=== PATIENT | female | born 1955 | race Caucasian/White ===

== ENCOUNTER 2019-01-05 10:09 | Inpatient (IN) | payer OTHER ==
[2019-01-05 11:37] LABS: #Lymphocytes 2.4 thou/uL (1.20-3.40); #Monocytes 0.8 thou/uL (0.11-0.59); #Neutrophils 10.7 thou/uL (1.40-6.50); %Basophils 0.4 % (0.0-1.0); %Eosinophils 0.1 % (0.0-10.0); %Lymphocytes 17.4 % (21.0-51.0); %Monocytes 5.6 % (0.0-10.0); %Neutrophils 76.6 % (42.0-75.0); Hemoglobin 14.2 g/dL (12.0-16.0); Mean Corpuscular HGB CONC 33.2 g/dL (32.0-36.0); Mean Corpuscular Hemoglobin 31.1 pg (27.0-31.0); Mean Corpuscular Volume 93.7 fL (78.0-98.0); Mean Platelet Volume 8.2 fL (7.4-10.4); Platelet Count 298 thou/uL (130-400); RBC Distribution Width 11.4 % (11.5-14.5); Red Blood Cell (RBC) Count 4.56 mill/uL (4.20-5.40)
[2019-01-05 12:02] LABS: ALT (SGPT) Less than 7 U/L (8-55); AST (SGOT) 8 U/L (5-34); Alkaline Phosphatase 61 U/L (40-150); Anion Gap 15 mmol/L (10-20); BUN (Urea Nitrogen) 24 mg/dL (9.8-20.1); Bilirubin, Total 0.5 mg/dL (0.2-1.2); Calc. Creatinine Clearance 0 mL/min (70-130); Calcium 9.6 mg/dL (7.8-10.44); Carbon Dioxide 22 mmol/L (23-31); Chloride 99 mmol/L (98-107); Estimated GFR-MDRD 86; Globulin 2.1 g/dL (2.4-3.5); Glucose 123 mg/dL (80-115); Potassium 4.1 mmol/L (3.5-5.1); Protein, Total 6.1 g/dL (6.0-8.3); Sodium 132 mmol/L (136-145)
--- NOTE | 2019-01-05 13:25 | CT ---
CT BRAIN WITHOUT CONTRAST: HISTORY: Left-sided weakness. FINDINGS: No evidence of acute infarct, hemorrhage, midline shift, or abnormal extraaxial fluid collections is seen. The ventricular size is appropriate and the basilar cisterns are patent. The bony calvarium i s intact. The visualized paranasal sinuses and mastoid air cells are well aerated. IMPRESSION: No CT evidence of acute intracranial process. POS: TPC
[2019-01-05 13:29] LABS: PTT 25.8 SEC (22.9-36.1); Prothrombin Time 13.6 SEC (12.0-14.7)
[2019-01-05] MEDS ORDERED: Ondansetron ODT 4 MG TAB SL PRN (14:52)
[2019-01-05] MEDS ORDERED: Acetaminophen 325 MG TAB PO PRN (14:52)
[2019-01-05] MEDS ORDERED: Ondansetron PF 4 MG/2 ML Vial IVP PRN (14:52)
--- NOTE | 2019-01-05 14:52 | PDOC.FPRHP ---
- History of Present Illness Chief Complaint: Progessive L sided Weaknes History of Present Illness: Pt is a 63 yo female with PMH signfiicant for DMII cervical spine stenosis who presented with worsening L sided weakness, arm and leg. Weakness began 2 weeks ago and progressively worsened to today prompting the visit to ED. Today she felt unable to walk with help. She has no new symptoms today. Before the onset of symptoms two weeks ago she denied any symptoms that are present now. She did state she had a cervical disc herniation resulting pain. She has accompanied tingling sensation, pain in her fingers and toes but no other sensation changes. She was seen by her PCP when symptoms began and had an MRI performed which revealed cervical compression, cervical disc herniation, and C1-C5 demyelination. Pt scheduled an appt for today, 01/05, with [facility] to evaluate MRI, symptoms. Due to her admission she cancelled the appt with neurosurgery. She went to an out of town ED, [facility], where she had a CTA revealing no stenosis of carotid arteries and CT head revealed chronic white matter changes, incidental 2 mm vertebral aneurysm. ED Course: In the ED a non-contrast CT was WNL. Labs were WNL other than a mildly elevated WBC, 14. ED noted Left sided weakness in face, arm, and leg. - Allergies/Adverse Reactions Allergies Allergy/AdvReac Type Severity Reaction Status Date / Time amoxicillin [From Augmentin] Allergy Verified 01/05/19 14:48 clavulanic acid Allergy Verified 01/05/19 14:48 [From Augmentin] - Home Medications Medication Instructions Recorded Confirmed Type Cyclobenzaprine [Flexeril] 01/05/19 History Losartan [Cozaar] 25 mg PO DAILY 01/05/19 01/05/19 History Meclizine HCl [Motion Sickness 25 mg PO 01/05/19 History Relief] Metaxalone [Skelaxin] 800 mg PO TID 01/05/19 01/05/19 History metFORMIN XR [Glucophage XR] 500 mg PO BID 01/05/19 01/05/19 History - History PMHx: DM, cervical stenosis, denied prior cardiac history or CVA/TIA PSHx: none FHx: none Social: stopped smoking 3 weeks ago after 20 years, smoked less than a pack per week at that time; denied alcohol, drug use - Review of Systems General: denies: fever/chills, weight/appetite/sleep changes Eyes: reports: eye pain ENT: denies: nasal congestion, rhinorrhea Respiratory: denies: cough, shortness of breath Cardiovascular: denies: chest pain, palpitation Gastrointestinal: denies: nausea, vomiting Skin: denies: rashes, lesions Neurological: reports: weakness, other (tingling, pain) Psychological: denies: anxiety, depression - Vital signs BP: [151/72] HR: [72] RR: [12] Tmax: []97.9 Pox: [97]% on [room air] Wt: [ 63.2 kg] - Physical Exam Constitutional: NAD, awake, alert and oriented HEENT: normocephalic and atraumatic, EOMI Neck: FROM, trachea midline Chest: no-tender to palpation, no lesions Heart: RRR, normal S1/S2, pulses present, no edema Lungs: CTAB, no respiratory distress, good air movement Abdomen: soft, non-tender, bowel sounds present Musculoskeletal: normal structure -Musculoskeletal: ROM decreased on L side secondary to weakness Neurological: CN II-XII intact -Neurological: Left sided weakness 4/5 in upper and lower extremities. CN II-XII intact, initially on exam she appeared to have possible eye droop but upon exam she retained strength comparable to R side. Sensation appeared intact w/o deficits but pt complained of tingling, pain in extremities w/o sensory deficits. Skin: good turgor, capillary refill <2 seconds Heme/Lymphatic: no purpura, no petechia Psychiatric: good judgment and insight, intact recent and remote memory FMR H&P: Results - Labs Result Diagrams: 01/05/19 11:18 01/05/19 11:18 Lab results: WBC 14.0 thou/uL (4.8-10.8) H 01/05/19 11:18 Hgb 14.2 g/dL (12.0-16.0) 01/05/19 11:18 Hct 42.7 % (36.0-47.0) 01/05/19 11:18 MCV 93.7 fL (78.0-98.0) 01/05/19 11:18 Plt Count 298 thou/uL (130-400) 01/05/19 11:18 Neutrophils % 76.6 % (42.0-75.0) H 01/05/19 11:18 Sodium 132 mmol/L (136-145) L 01/05/19 11:18 Potassium 4.1 mmol/L (3.5-5.1) 01/05/19 11:18 Chloride 99 mmol/L (98-107) 01/05/19 11:18 Carbon Dioxide 22 mmol/L (23-31) L 01/05/19 11:18 BUN 24 mg/dL (9.8-20.1) H 01/05/19 11:18 Creatinine 0.69 mg/dL (0.6-1.1) 01/05/19 11:18 Glucose 123 mg/dL (80-115) H 01/05/19 11:18 Calcium 9.6 mg/dL (7.8-10.44) 01/05/19 11:18 Total Bilirubin 0.5 mg/dL (0.2-1.2) 01/05/19 11:18 AST 8 U/L (5-34) 01/05/19 11:18 ALT Less than 7 U/L (8-55) L 01/05/19 11:18 Alkaline Phosphatase 61 U/L (40-150) 01/05/19 11:18 Serum Total Protein 6.1 g/dL (6.0-8.3) 01/05/19 11:18 Albumin 4.0 g/dL (3.4-4.8) 01/05/19 11:18 - Radiology Interpretation CT scan - head Status: report reviewed by me (No acute evidence of intracranial process.) FMR H&P: A/P - Problem List (1) Weakness Current Visit: Yes Status: Acute Code(s): R53.1 - WEAKNESS (2) Radiculopathy Current Visit: Yes Status: Acute Code(s): M54.10 - RADICULOPATHY, SITE UNSPECIFIED (3) Cervical stenosis of spine Current Visit: Yes Status: Acute Code(s): M48.02 - SPINAL STENOSIS, CERVICAL REGION (4) Herniated disc, cervical Current Visit: Yes Status: Acute Code(s): M50.20 - OTHER CERVICAL DISC DISPLACEMENT, UNSP CERVICAL REGION (5) Diabetes mellitus Current Visit: Yes Status: Acute Code(s): E11.9 - TYPE 2 DIABETES MELLITUS WITHOUT COMPLICATIONS - Plan # Progressive Weakness, multiple weeks since onset secondary to Chronic Cervical Stenosis vs CVA vs B 12 Def vs Tertiary Syphilis # Cervical Demyelination # Herniated Cervical Disc Pt was scheduled to see [facility], Neurosurgery, today concerning new onset symptoms but came to hospital bc she felt uncomfortable with weakness since previous Saturday. Symptoms have been present x 2 weeks prompting PCP to order cervical MRI. Pt also was seen in out of town ED concerning symptoms where CT Head, CTA Carotids were performed. TSH WNL. - MRI neck (outside facility): demyelinating lesion C1-C5/6, spinal stenosis, herniated disk - CT head (outside facility): chronic white matter lesions, 2mm incidental vertebral aneurysm - CTA carotids: neg - CT Head noncontrast 01/05 - unremarkable for acute pathology - MRI brain pending - Neurosurg consult, appreciate recs - Neurology will see pt if neurosurg feels pt is non-surgical - pending B12, Folate, RPR # L Foot Pain Pt endorsed left foot pain after foot buckled while walking. Weak but normal passive ROM. - Ankle xray pending # DM II Denies HLD, HTN even though on therapy, possibly on medication for prevention - cont metformin, losartan - Hx of statin therapy Diet: Diabetic Diet Fluids: None, PO Intake DVT Prophalaxis: SCD's Code: Full Dispo: Observation as symptoms are not new onset within previous 24-48 hours but are progressively becoming worse. Follow up MRI Brain, neurosurg recs. FMR H&P: Upper Level - Pertinent history 63 yo F with PMHx of DM and HTN here with complaint of L sided weakness and tingling for the past month that has been progressively worsening. She states that today it has become hard to walk and that her L leg gave out from under her. Work up for these symptoms has been started in the outpatient setting. She has a previous CTA head and neck that was clear other than an incidental 2mm vertebral artery aneurism. MRI neck found a demyelinating lesion vs cervical stenosis. She has a known hx of cervical herniated disc. She also complains of L ankle pain that started after her leg gave out earlier today. See mba intern portion of note for full ROS, PE, vitals, and labs ROS General denies fever, chills, malaise CV denies, CP, edema Resp denies cough, sob Neuro complains of left facial numbness, left arm/hand weakness, left leg weakness GI denies n/v/d - Pertinent findings PE General A&O x4, no acute distress CV RRR, no murmur Resp CTA Neuro slight L facial droop, L UE normal strength, R UE 4/5, normal R LE strength, 4/5 L LE strength. Normal sensation Extremities normal pulses, cap refill normal, normal L ankle and foot ROM. Mild left ankle lateral TTP - Plan Date/Time: 01/05/19 1452 I, Emeka Miramontes, DO, have evaluated this patient and agree with findings/plan as outlined by [facility]ba intern resident. Pertinent changes/additions are listed here. 1.Upper and Lower extremity weakness secondary to cervical compression -Most likely demyelination related to known compression, however given facial symptoms will MRI brain. -Check lipid, TSH, B12, folate, and RPR -Discussed with Dr Espinal, he will see pt if neuro surg does not feel symptoms are related to compression -PT/OT eval 2.DM2 -Home meds -ACHS accucheck -SSI -Low carb diet 3.HTN -Home meds 4. Ankle contusion -low concern for fracture. Will order 3v ankle XR to verify. Addendum - Attending - Attending Attestation Date/Time: 01/05/19 1500 I personally evaluated the patient and discussed the management with Dr. Iglesias /Fe. I agree with the History, Examination, Assessment and Plan documented above with any addition or exceptions noted below. Patient here with 1 month history of neck pain and increasing weakness and paresthesias in the lower and upper extremities. Patient and family report these have been getting worse over this 1 month period to the point she is unable to ambulate without assistance. She had MRI C spine obtained at OSH that showed compression versus demyelination of the cervical cord. She had appointment with NSGY at some point today but got worse and was brought to the ED. On exam, she appears uncomfortable. 4/5 strength in the upper and lower extremities and symmetric. Her CT scan is unremarkable. Family has disc of outside imaging of the C spine. We will place in obs status, obtain brain MRI due to the concern for higher neurological lesion and possible demyelinating disorder. Consult NSGY. Further mgmt per their recommendations. Consult PT as she looks like she will need some therapy at minimum to regain her functional status. Consider Decadron if this truly appears to be a compression type issue.
[2019-01-05 16:07] LABS: Cardiac Risk 5.2 (Less than 4.5)
--- NOTE | 2019-01-05 16:10 | RAD ---
LEFT ANKLE 3 VIEWS: HISTORY: Trauma, left ankle pain. FINDINGS/IMPRESSION: The ankle mortise is maintained. No acute fracture or dislocation is identified. There is a posteri or calcaneal spur. POS: TPC
[2019-01-05] MEDS ORDERED: Meclizine HCl 25 MG TAB PO PRN (16:23)
[2019-01-05 16:25] LABS: Syphilis Antibody Nonreactive (Nonreactive); Syphilis Antibody Index 0.03 S/CO (<1.00 Non-Reactive)
--- NOTE | 2019-01-05 16:36 | MRI ---
Exam: Brain MRI with and without contrast HISTORY: Progressive left-sided weakness, x2 weeks COMPARISON: None FINDINGS: Gradient echo sequence: No hemorrhage Calvarium: Appropriate T1 marrow signal intensity Midline brain parenchyma: Unremarkable Cerebrum:With regards to the cerebrum and cerebellum, there is no parenchymal mass, mass effect or mi dline shift. Brain volume is age appropriate. Cortical baez-white matter differentiation is preserved. T2 and FLAIR white matter hyperintensities chronic small vessel ischemic change. Ventricles: No evidence of hydrocephalus. Sinuses and mastoid air cells: Mild mucosal thickening and opacification of the paranasal sinuses and mastoid air cells Diffusion: Central arterial flow is maintained. Absent restricted diffusion, with regards to the cere ismael and cerebellum. There is restricted diffusion involving the cervical medullary junction. Postcontrast images:There is no pathologic enhancement of the cerebrum or cerebellum Brain stem: There is abnormal signal intensity and expansion involving the cervical medullary junctio n, and medulla. Postcontrast images demonstrate irregular linear enhancement. Enhancement is felt to be intramedullary/intra-axial. IMPRESSION: 1. No abnormality signal intensity with regards to the cerebrum and cerebellum 2. Abnormal signal intensity involving the middle and cervical medullary junction. Findings are presu med to be due to a primary neoplastic process. Demyelinating process or cord infarct are also less favored considerations. Further evaluation with a cervical, thoracic and lumbar spine MRI is recommen ded. MRI should be performed with and without gadolinium. Given that the patient is just recently received gadolinium consider follow-up imaging in 24 hours. Neurosurgical consultation is recommended Results of study discussed with Lan, patient's nurse 01/05/2019 at 4:34 PM Code CR ADDENDUM: Outside imaging (12/26/2018 [facility]) is made available which demonstrate abnorm al signal intensity in the visualized cervical cord. Those images do not include postcontrast imaging. As stated above, complete pre and postcontrast imaging of the spine along with neurosurgical consultation is recommended.
[2019-01-05] MEDS: Sodium Chloride 0.9% 1,000 ML IV SCH (17:43)
[2019-01-05] MEDS: Acetaminophen/Codeine 30-300mg Tablet PO PRN (21:54)
[2019-01-05] MEDS: metFORMIN XR 500 MG TAB PO SCH (21:54)
[2019-01-06] MEDS: Sodium Chloride 0.9% 1,000 ML IV SCH (03:41)
[2019-01-06] MEDS: Acetaminophen/Codeine 30-300mg Tablet PO PRN ×4 (03:44→21:29)
--- NOTE | 2019-01-06 05:46 | PDOC.FM ---
- Subjective Subjective: Pt is alot of pain. She had difficult time participating in interview due to pain. - Objective Vital Signs & Weight: Vital Signs (12 hours) Temp Pulse Resp BP Pulse Ox 01/06/19 04:00 98.2 F 65 16 189/79 H 97 01/06/19 01:07 98.4 F 65 16 164/74 H 96 01/05/19 20:00 98.1 F 64 16 177/77 H 99 Weight Weight 63.276 kg I&O: 01/04/19 01/05/19 01/06/19 06:59 06:59 06:59 Intake Total 80 Balance 80 Result Diagrams: 01/06/19 06:27 01/05/19 11:18 Phys Exam - Physical Examination In obvious distress due to pain Neck: no nodes, no JVD Respiratory: clear to auscultation bilateral Cardiovascular: RRR, no significant murmur Gastrointestinal: soft, non-tender Musculoskeletal: no edema, pulses present Left sided weakness, 4/5 LUE strength, 3-4/5 LLE strength,sharp pain L side Psychiatric: normal affect, A&O x 3 Dx/Plan (1) Weakness Code(s): R53.1 - WEAKNESS Status: Acute (2) Radiculopathy Code(s): M54.10 - RADICULOPATHY, SITE UNSPECIFIED Status: Acute (3) Cervical stenosis of spine Code(s): M48.02 - SPINAL STENOSIS, CERVICAL REGION Status: Acute (4) Herniated disc, cervical Code(s): M50.20 - OTHER CERVICAL DISC DISPLACEMENT, UNSP CERVICAL REGION Status: Acute (5) Diabetes mellitus Code(s): E11.9 - TYPE 2 DIABETES MELLITUS WITHOUT COMPLICATIONS Status: Acute - Plan Plan: # Progressive Weakness, multiple weeks since onset secondary to lesion noted on MRI, likely primary brain neoplasm # Cervical Demyelination # Herniated Cervical Disc Pt was scheduled to see [facility], Neurosurgery, 01/05 concerning new onset symptoms but came to hospital bc she felt uncomfortable with progressive weakness. Symptoms have been present x 2 weeks prompting PCP to order cervical MRI. Pt also was seen in out of town ED concerning symptoms where CT Head, CTA Carotids were performed. TSH WNL. MRI brain w/ and w/o revealed abnormal signal intensity involving the middle and cervical medullary junction. Findings are presumed to be due to a primary neoplastic process. Demyelinating process or card infarct are less favored considerations. MRI neck (outside facility): demyelinating lesion C1-C5/6, spinal stenosis, herniated disk CT head (outside facility): chronic white matter lesions, 2mm incidental vertebral aneurysm CTA carotids: neg CT Head noncontrast 01/05 - unremarkable for acute pathology B12, Folate, TSH WNL; RPR non-reactive - Neurosurg consult, appreciate recs; pending cervical, thoracic, lumbar MRI - Neurology will see pt if neurosurg feels pt is non-surgical - started T3 home med for pain, added gabapentin 100 mg TID for neuropathic pain # L Foot Pain Pt endorsed left foot pain after foot buckled while walking. Weak but normal passive ROM. - Ankle xray revealed no acute process, posterior calcaneal spur # DM II Denies HLD, HTN even though on therapy, possibly on medication for prevention but pt was unsure - cont metformin, losartan, statin therapy Diet: Diabetic Diet Fluids: None, PO Intake DVT Prophalaxis: SCD's --> Considering lovenox as pt has likely malignancy Code: Full Dispo: Observation as symptoms are not new onset within previous 24-48 hours but are progressively becoming worse. Follow up neurosurg recs. Addendum - Attending - Attending Attestation Date/Time: 01/06/19 0198 I personally evaluated the patient and discussed the management with Dr. Iglesias. I agree with the History, Examination, Assessment and Plan documented above with any addition or exceptions noted below. Patient with increasing pain, weakness, and paresthesias in b/l UE and LE here with MRI evidence of lesion on brainstem. Currently uknown etiology but malignancy is a concern. She is going for entire spine MRI today and NSGY is on board. Work to get pain under control and further mgmt pending results of imaging.
[2019-01-06 06:53] LABS: Mean Corpuscular HGB CONC 34.2 g/dL (32.0-36.0); Mean Corpuscular Hemoglobin 31.5 pg (27.0-31.0); Mean Corpuscular Volume 92.2 fL (78.0-98.0); Mean Platelet Volume 7.4 fL (7.4-10.4); Platelet Count 337 thou/uL (130-400); RBC Distribution Width 11.3 % (11.5-14.5); Red Blood Cell (RBC) Count 4.43 mill/uL (4.20-5.40); White Blood Cell (WBC) Count 12.1 thou/uL (4.8-10.8)
[2019-01-06 06:55] LABS: Lymphocytes 13 % (21-51); MDiff Complete? YES; Monocytes 4 % (0-10); Neutrophil 83 % (42-75); Platelet Morphology Comment Appears Adequate; RBC Morphology Normal
[2019-01-06] MEDS: Losartan 25 MG TAB PO SCH (09:12)
[2019-01-06] MEDS: metFORMIN XR 500 MG TAB PO SCH ×2 (09:12→21:29)
[2019-01-06] MEDS: Rosuvastatin 5 MG TAB PO SCH (09:13)
[2019-01-06] MEDS: Gabapentin 100 MG CAP PO SCH ×3 (09:20→21:28)
--- NOTE | 2019-01-06 13:52 | PRG ---
DATE OF SERVICE: 01/06/2019 I reviewed Ms. Rodrigez's case with Shakira Holman PA-C, reviewed imaging and records and agreed with their notes. Ms. Rodrigez has heart-shaped enhancing mass at the cervicomedullary junction in addition to a C5-6 intervertebral disk herniation causing spinal stenosis. I believe she is symptomatic from the mass rather than the stenosis, but both could be causing some of her symptoms. The most concerning feature is the mass. This enhances. There is some restricted diffusion in the center of the cord at the cervicomedullary junction, and there is T2 signal change up and down into the brainstem and down into the cervical cord related to the mass as well. This is an unusual lesion. This could be vascular in the form of the AVM or fistula or an extremely vascular tumor like hemangioblastoma. However, there is a high possibility of meningitic disease including carcinomatous meningitis along with infectious and granulomatous meningitis. In addition to the lesion found at the cervicomedullary junction, there is a small enhancing nodule in the parenchyma of the brain in the medial right frontal lobe, adjacent to the occipital horn on the left side is some signal change postcontrast as well that is quite faint. I agree with the Radiology that Ms. Rodrigez needs contrast imaging of the entire neuraxis. If her gadolinium administration last evening precludes that today, then it should be done tomorrow. The contrast enhanced CT of the chest, abdomen, and pelvis for primary lesion responsible for carcinomatous meningitis would be worthwhile as well. One test to do today, in my view, is a large volume LP. 20 to 30 mL could be removed. The patient needs to lie flat for about 4 hours after the procedure. The CSF should be sent for cancer cytology. About 20 mL might be needed for that. The remainder can be sent for protein, glucose, cell count, differential, Gram stain, culture, and TB PCR as well. For more questions about possible slowly infectious processes resulting in basal meningitis, consult will be placed for Dr. Duran. Of all the etiologies listed above, favor carcinomatous meningitis, but a focal hemangioblastoma or vascular lesion is possible. During the workup this week, if there is no etiology found, one could consider biopsy. An attempt at resection would be extremely high risk. We do attempt biopsy and we could decompress C5-6 posteriorly at the same time. I will follow up on studies this week as they come in. Job ID: [id number]
[2019-01-06 14:09] LABS: Folate,Hemolysate 388.6 ng/mL (Not Estab.); Hematocrit 39.8 % (34.0-46.6); RBC Folate Test Component 976 ng/mL (>498)
[2019-01-06] MEDS ORDERED: Gadobenate Dimeglumine 529 MG/1 ML (20ML VIAL) ONE (15:21)
--- NOTE | 2019-01-06 15:53 | CON ---
DATE OF CONSULTATION: HISTORY OF PRESENT ILLNESS: Ms. Rodrigez is a 63-year-old female, who reported to the emergency room yesterday following 2 weeks of left-sided weakness. The patient states that she was seen by her primary care for some right arm numbness and tingling and was taking some Aleve, which resolved with oral medications; however, a week later progressed to left-sided numbness and tingling. She has pain in her neck, weakness in the left upper and lower extremities, and some pain in the left lower extremity as well. She is vague about specific distribution. The patient was seen in [place] about a week ago, had an MRI of the cervical spine showing a cervical compression as well as a CT angiogram that indicated artery aneurysm. She was released from the hospital, was discharged to follow up with neurosurgeon, which was scheduled for yesterday; however, the patient's was unable to move the patient around and get to that appointment, so he brought her to the emergency room here in [place] instead. Neurosurgery was consulted. This morning, she is resting in her hospital bed. She some distress, pain, lethargic. She is arousable. She responds appropriately. Cranial nerves are tested and intact. She complains of neck pain and left-sided neck and arm pain, numbness and tingling, and some tingling sensation, she states around the left the ear as well. There is decreased weakness in the left lower extremity with some tingling there. She is moving the right upper and lower extremities well and has no complaints on the right side. The patient states that things have not have been getting worse and not better in the last several weeks. REVIEW OF SYSTEMS: A 10-point review of systems has been completed, is negative other than stated in the above HPI. PAST MEDICAL HISTORY: Diabetes type 2 aneurysm. PAST SURGICAL HISTORY: No surgical history. SOCIAL HISTORY: The patient is a former smoker. Quit earlier this year. Denies drug or alcohol use. ALLERGIES: AUGMENTIN. MEDICATIONS: 1. Metformin. 2. Meclizine. 3. Losartan. 4. Cyclobenzaprine. 5. . PHYSICAL EXAMINATION: VITAL SIGNS: Temperature 98.2, heart rate 65, respirations 16, O2 saturations 97% on room air, blood pressure 189/79. CONSTITUTIONAL: The patient is awake, alert, appears to be in some pain and general malaise. She is afebrile, hypertensive. HEENT. Head is normocephalic and atraumatic. Pupils are equal, round, and reactive to light. Extraocular movements are intact. Hearing is intact. Moist mucous membranes. RESPIRATIONS: Normal work of breathing on room air. Symmetric chest rise. EXTREMITIES: Upper extremity 5/5 strength in the right deltoid, biceps, triceps, wrist extension, finger extension, finger intrinsics. Left upper extremity, 3/5 deltoid, 4-/5 biceps, triceps, wrist extension, finger extension, finger intrinsics. Lower extremity right-sided 5/5 strength, hip flexion, hip extension, knee flexion, knee extension, dorsiflexion, plantar flexion. Left-sided, 4/5 hip flexion, knee extension, knee flexion, dorsiflexion, plantar flexion. NEUROLOGIC: The patient is awake, alert. She does have some general appearance of malaise, but responds appropriately. Speech is spontaneous and fluent. Cranial nerves 2 through 12 are tested and intact. She has decreased muscle strength in the left upper and lower extremity with subjective numbness and tingling in left upper extremity as well. She has no clonus bilaterally. 2+ reflexes patellar and symmetric. IMAGING STUDIES: CT of cervical spine shows [id number] ASSESSMENT AND PLAN: Ms. Rodrigez is a 63-year-old female with progressive weakness, numbness, and tingling in the left upper and lower extremities. 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 She had a cervical stenosis; however, this is not likely the cause of all of her symptoms concerned for tumor versus infectious AVMs We will recommend continued workup for her symptoms with MRI without contrast of the cervical spine, thoracic and lumbar MRI with and without contrast. Referral to Neurology . If there are any further questions, please contact neurosurgical team. Job ID: [id number]
--- NOTE | 2019-01-06 16:06 | MRI ---
MRI OF THE LUMBAR SPINE WITH AND WITHOUT CONTRAST: 01/06/19 INDICATIONS: Low back pain. Left side weakness. No comparison. Lumbar vertebrae maintain normal height and alignment. Disc spaces are maintained. There is no eviden ce of vertebral body edema or compression. At T12-L1, there is a mild disc bulge flattening the anterior thecal sac. No central canal stenosis. At L1-2, no significant disc bulge. Mild facet arthrosis. No central canal or foraminal stenosis. At L2-3, no significant disc bulge. Mild facet arthrosis. No central canal or foraminal stenosis. At L3-4, no significant disc bulge or protrusion. No central canal or foraminal stenosis. At L4-5, annular fissure is seen to the left with mild diffuse disc bulge flattening the anterior the magnus sac. Mild facet arthrosis. No significant central canal or foraminal stenosis. The annular fissur e and asymmetric bulge projects laterally to the left and may contact the exiting left L4 nerve root. At L5-S1, there is an annular fissure with a small central protrusion flattening the anterior thecal sac and projecting slightly to the left. No significant central canal or foraminal stenosis. This may contact the traversing left S1 nerve root within the canal. Incidentally noted is ectopic right kidney partially imaged in the pelvis. IMPRESSION: 1. Annular fissures with disc bulges at L4-5 and L5-S1 as described. 2. Ectopic right kidney POS: [facility]
--- NOTE | 2019-01-06 16:09 | MRI ---
EXAM: MRI thoracic spine without and with contrast HISTORY: Increasing left-sided weakness for 4 to 5 weeks. Patient is now unable to move the entire le ft side. COMPARISON: None TECHNIQUE: Multiplanar multisequence MR images were obtained of the thoracic spine without and with c ontrast. FINDINGS: The vertebral bodies and intervertebral discs demonstrate normal height and alignment without fractur e or subluxation. The visualized cord demonstrates normal signal throughout. No abnormal enhancement is seen on this examination. The prevertebral soft tissues are unremarkable. No paraspinal soft tissue abnormality is seen. No significant bulges or protrusions are seen throughout the thoracic spine. No central canal stenosi s. No neural foraminal stenosis. No posterior facet arthrosis. IMPRESSION: No significant cervical spine abnormality.
--- NOTE | 2019-01-06 16:36 | MRI ---
MRI CERVICAL SPINE WITH AND WITHOUT CONTRAST: HISTORY: Increasing left-sided weakness for 4 to 5 weeks. The patient is now unable to move the entire left s nuzhat. COMPARISON: 12/26/2018 TECHNIQUE: MRI of the cervical spine is performed with and without intravenous Gadolinium administration. Multi sequential, multiplanar images are performed. FINDINGS: Appropriate T1 marrow signal intensity of the cervical vertebrae. Cervical spine vertebral body heig ht is maintained. There is no fracture. There is intrinsic T2 and STIR hyperintensity involving the inferior aspect of the demetria, medulla, cer vicomedullary junction, and the entire cervical cord, down to the T1 level. The degree of T2/STIR hy perintensity has progressed. There is cord expansion and abnormal signal intensity involving the ent david cervicomedullary junction and upper cervical cord. At the C2 level, abnormal signal intensity in volves the central aspect of the cord, sparing the periphery. Postcontrast images demonstrate intram edullary enhancement involving the medulla, cervicomedullary junction, and posterior aspect of the sp inal cord. There is involvement of the baez and white matter. Abnormal enhancement is noted down to the C2 level. The remainder of the cervical cord does not demonstrate any abnormal enhancement. As noted on the previous MRI, there is evidence of restricted diffusion at the level of the medulla and cervicomedullary junction. C2-C3: Central disk protrusion. Mild to moderate central canal stenosis. Mild bilateral foraminal narrowing. C3-C4: Central disk protrusion. Mild central canal stenosis. Bilaterally, the neural foramina are patent. C4-C5: Broad-based disk osteophyte complex. Mild central canal stenosis. The neural foramina are p atent bilaterally. C5-C6: There is a broad-based disk osteophyte complex with a left paracentral component. Moderate c entral canal stenosis. Moderate to severe bilateral foraminal narrowing due to uncovertebral hypertr ophy. C6-C7: Broad-based disk osteophyte complex abuts the thecal sac. There is flattening of the ventral cord. Moderate central canal stenosis. Severe bilateral foraminal narrowing. C7-T1: No significant central canal stenosis or neural foraminal narrowing. IMPRESSION: 1. Degenerative changes of the cervical spine, as detailed above. 2. Stable abnormal signal intensity in the visualized brainstem, cervicomedullary junction, and cerv ical cord. There is abnormal T2 hyperintensity extending into the C6, C6, and T1 vertebral body leve ls. Abnormal signal intensity involves the central aspect of the cord. There is persistent intramed ullary enhancement with heterogeneous and restricted diffusion. A primary neoplastic process is favo red. Other considerations, such as cord infarction, are less favored. POS: [facility]
--- NOTE | 2019-01-06 17:33 | CON ---
DATE OF CONSULTATION: 01/06/2019 CONSULTING PHYSICIAN: Neurosurgical Service. IMPRESSION: Intramedullary process involving the demetria, medulla and upper cervical cord, resulting in a left-sided weakness and numbness and secondary hiccups. Differential could include a primary tumor versus a transverse myelitis type process. Cord infarct seems highly unlikely given the extensive nature in the subacute onset. PLAN: 1. Suggest a lumbar puncture to look for evidence of inflammation. 2. Consider Solu-Medrol 1 g per day for 2 days followed by a steroid taper, if there is evidence of inflammation. 3. Tegretol 100 mg twice a day maybe helpful for the hiccups. HISTORY OF PRESENT ILLNESS: Ms. Rodrigez is a 63-year-old woman with no significant past history. She presents with a 3-week history of some progressive weakness and numbness of the left side, started experiencing some pain in the cervical spine. She then developed some hiccups, so it made difficult for her to hold down food. She had an MRI of the brain done, which showed a suspicious lesion in the brainstem region. A followup MRI of the cervical spine showed an extension of the lesion from the demetria down to the mid cervical region. There was some cord expansion associated with it. She has no history of prior malignancy. She has not had any other constitutional symptoms. Her laboratory studies were unremarkable including B12 and folate level. PAST MEDICAL HISTORY: Unremarkable. FAMILY HISTORY: Noncontributory. SOCIAL HISTORY: No tobacco or alcohol use. ALLERGIES: AMOXICILLIN/CLAVULANIC ACID. MEDICATIONS: Medication list was reviewed. REVIEW OF SYSTEMS: Ten-system review of systems is otherwise negative. PHYSICAL EXAMINATION: VITAL SIGNS: Blood pressure 156/82, pulse 115, respirations 20, temperature 98.5. HEENT: Pupils are equal and reactive. Conjunctivae clear. Oropharynx clear. NECK: Supple. No lymphadenopathy. EXTREMITIES: No cyanosis, clubbing, or edema. NEUROLOGIC: She is alert and cooperative. Her speech is fluent and clear. Cranial nerves are intact. Motor exam showed antigravity strength in the left arm more so than the left leg. Sensation is subjectively decreased in the left leg. Plantar response is mute on the left and downgoing on the right. Gait is not testable. No abnormal movements are seen. IMAGING STUDIES: Imaging was reviewed. SUMMARY: For further data is needed to try to determine the underlying cause of her symptoms. Hopefully, this would be an inflammatory process, it will respond to steroids. Job ID: [id number]
[2019-01-06] MEDS ORDERED: carBAMazepine 100 mg Chewable Tablet PO SCH (18:30)
[2019-01-06] MEDS: methylPREDNISolone Sod Succ 1,000 MG in Sodium Chloride 0.9% 100 ML IVPB SCH (19:22)
[2019-01-06] MEDS: Ondansetron PF 4 MG/2 ML Vial IVP PRN (19:24)
[2019-01-06] MEDS: carBAMazepine 100 mg Chewable Tablet PO SCH (21:32)
--- NOTE | 2019-01-07 06:03 | PDOC.FM ---
- Subjective Subjective: Pt is doing well today. Pain is better controlled, tolerable but present. Much improvement with medications from yesterday. She was able to sleep through the evening. Remains with hiccups. She was in good spirits today. - Objective Vital Signs & Weight: Vital Signs (12 hours) Temp Pulse Resp BP Pulse Ox 01/07/19 04:00 98.4 F 101 H 20 148/78 H 96 01/07/19 00:00 99.0 F 97 19 148/72 H 95 01/06/19 20:00 97.8 F 101 H 19 171/87 H 95 Weight Weight 63.276 kg I&O: 01/05/19 01/06/19 01/07/19 06:59 06:59 06:59 Intake Total 80 Balance 80 Result Diagrams: 01/06/19 06:27 01/05/19 11:18 Phys Exam - Physical Examination Constitutional: NAD good spirits today HEENT: PERRLA, moist MMs Respiratory: no wheezing, no rales, no rhonchi, clear to auscultation bilateral Cardiovascular: RRR, no significant murmur Gastrointestinal: soft, non-tender, no distention Musculoskeletal: no edema, pulses present 4+/5 strength LUE, 4/5 strength LLE, sensation remains intact but w/ pain Psychiatric: normal affect, A&O x 3 Dx/Plan (1) Weakness Code(s): R53.1 - WEAKNESS Status: Acute (2) Radiculopathy Code(s): M54.10 - RADICULOPATHY, SITE UNSPECIFIED Status: Acute (3) Cervical stenosis of spine Code(s): M48.02 - SPINAL STENOSIS, CERVICAL REGION Status: Acute (4) Herniated disc, cervical Code(s): M50.20 - OTHER CERVICAL DISC DISPLACEMENT, UNSP CERVICAL REGION Status: Acute (5) Diabetes mellitus Code(s): E11.9 - TYPE 2 DIABETES MELLITUS WITHOUT COMPLICATIONS Status: Acute - Plan Plan: # Progressive Weakness, multiple weeks since onset secondary to lesion noted on MRI at Cervicomedullary Junction # Cervical Demyelination # Herniated Cervical Disc Pt was scheduled to see [facility], Neurosurgery, 01/05 concerning new onset symptoms but came to hospital bc she felt uncomfortable with progressive weakness. Symptoms have been present x 2 weeks prompting PCP to order cervical MRI. Pt also was seen in out of town ED concerning symptoms where CT Head, CTA Carotids were performed. TSH WNL. MRI Cervical revealed stable abnormal signal intensity in the visualized brainstem, cervicomedullary junction, and cervical cord; primary neoplastic is favored, other considerations are cord infarct but less favorable. MRI Thoracic revealed no significant abnormalities MRI Lumbar annjular fissures with disc bulges at L5-L5 and L5-S1; ectopic kidney MRI brain 01/05/19 w/ and w/o revealed abnormal signal intensity involving the middle and cervical medullary junction. Findings are presumed to be due to a primary neoplastic process. Demyelinating process or card infarct are less favored considerations. MRI neck (outside facility): demyelinating lesion C1-C5/6, spinal stenosis, herniated disk CT head (outside facility): chronic white matter lesions, 2mm incidental vertebral aneurysm CTA carotids: neg CT Head noncontrast 01/05 - unremarkable for acute pathology B12, Folate, TSH WNL; RPR non-reactive Neurosurg consult, appreciate recs; Neurology sonsult, appreciate recs - Neurosurg, neurology are currently following pt, appreciate rec's. Recommended Steroid was initiated yesterday. Lumbar and thoracic MRI did not reveal significant pathology. Cervical lesion confirmed lesion at cervicomedullary junction. 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 Other considerations are AVM, fistula, and hemangioblastoma, transverse myelitis, infection, primary neoplasm. Large volume LP with cytology of CSF is scheduled. Neurology will consult Dr. Druan in consideration for a slow infectious process. If workup is negative neurology discussed consideration of biopsy, resection in this location would be difficult. # Pain likely Secondary to LENS GRINDER ROUGH Lesion - well controlled 01/07 - Home Tylenol 3 restarted; Initiated Gabapentin, Metaxalone, Steroid # Hiccups - started Tegratol per neurosurg # L Foot Pain Pt endorsed left foot pain after foot buckled while walking. Weak but normal passive ROM. 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 Follow up on lab testing to further stratify brain lesion. Addendum - Attending - Attending Attestation Date/Time: 01/07/19 1121 I personally evaluated the patient and discussed the management with Dr. Iglesias. I agree with the History, Examination, Assessment and Plan documented above with any addition or exceptions noted below. Patient somewhat improved. Continues to undergo workup to determine etiology of her brain and brainstem lesion. Continues on Methylpred and pain control. Going for LP today. Further recs per NSGY and Neurology. Patient feeling better today.
[2019-01-07] MEDS: Acetaminophen/Codeine 30-300mg Tablet PO PRN ×2 (09:19→18:20)
[2019-01-07] MEDS: Losartan 25 MG TAB PO SCH (09:21)
[2019-01-07] MEDS: Gabapentin 100 MG CAP PO SCH ×3 (09:22→20:59)
[2019-01-07] MEDS: metFORMIN XR 500 MG TAB PO SCH ×2 (09:22→21:23)
[2019-01-07] MEDS: Rosuvastatin 5 MG TAB PO SCH (09:23)
[2019-01-07] MEDS: carBAMazepine 100 mg Chewable Tablet PO SCH ×2 (09:24→21:22)
--- NOTE | 2019-01-07 11:22 | PRG ---
DATE OF SERVICE: 01/07/2019 I personally reviewed and examined the patient. I agree with documentation of Shakira Holman PA-C, dated 01/06/2019. Briefly, Charis Rodrigez is a very pleasant 63-year-old woman, who is not particularly overweight, but developed diabetes in June of this year. She had been doing fine and doing diabetes management until 2 weeks ago when she began to have neurological symptoms that she has never had before. She has never experienced any Calvert palsy. She has not had any transient vision disturbance, any transient weakness, or numbness that she can remember in entire life. Two weeks ago, she started having some right arm pain with radiation to the hand that went away, and then the left side of the neck began to hurt and radiate down the left arm that progressed to facial numbness, left hemibody numbness, and extreme profound left-sided weakness. She eventually came to the emergency department and was admitted. Since then MR imaging has revealed a very odd lesion at the cervical medullary junction. This seems to be involving mostly the moose and some of the parenchyma. There is T2 signal change in the medulla extending upward into the demetria and down into the spinal cord as far as C6 and C7. There may be a flow void association. There is one other area of enhancement, which is in the anterior medial right frontal lobe and it is a small area. Adjacent to the occipital horn on the left side, there might be some signal that is more prominent after contrast and precontrast, but this is an even more subtle finding. Since yesterday, new scans have been done of the entire spine, and there is no other area of enhancement or T2 signal change. Also noted on her cervical spine MRI scan is a C5-C6 disk protrusion with cord compression. This is not the center of the edema, however. In fact, when she first came in, it was at the very distal end of the edema and now the edema has extended down to C6-7 below the level of this disk. Yesterday, steroids were started and she feels a bit better today. In fact, she can lift her left arm off the bed. It was not antigravity yesterday. This is an improvement. The rest of her examination is notable for a left-sided upper motor neuron weakness with deficiency in the flexors of the lower extremity and the extensors of the upper extremity. She has left-sided loss of touch and right-sided pain and temperature. She has a Tadeo's on the left from decreased sympathetics. She has some left facial loss of sensation related to the extension of the T2 signal change up to the demetria. I recommend a CT chest, abdomen, and pelvis. I recommend CSF sampling done in a careful fashion. CSF should be sent for protein, glucose, cells, Gram stain, culture, TB-PCR, oligoclonal bands, IgG index, and a significant portion of the perhaps as much as 20 mL sent for cytology looking for lymphoma or other tumor cells. My differential is broader than most patients's I see. First, I think this could be inflammatory. 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 Steroid treatment seems to be helping. This could be infectious, although it is not a bacterial meningitis or she would look sicker. Could be TB or other granulomatous diseases or slow infection. Vascular. This could represent a diffuse AVM or hypertension from an AV fistula. An angiogram would be needed if this is considered. Could be neoplastic. Lymphoma may look like this or carcinomatous meningitis. Thus, the reason for the CT of the chest, abdomen, pelvis. An LP is done today. She will need to lie flat for the rest of the day. The LP should be done with a small-bore needle as slowly as possible and Radiology needs to do. I do not want significant fluid shifts between the area above C5 and C6 and the area below that is quick, however, slow drip from a small LP needle to collect about 30 mL would be preferable. She may have to lie on her side on the x-ray table for quite some time to collect it, but I think that is the safest thing to do. Job ID: [id number]
--- NOTE | 2019-01-07 12:33 | RAD ---
CT GUIDED RIGHT ILIAC BONE MARROW ASPIRATION AND BIOPSY: CLINICAL HISTORY: Decreased white blood cell count. PROCEDURE: The procedure including the risks and complications were explained to the patient, and informed conse nt was obtained. The patient was placed on the CT scan table in the prone position. Conscious sedation for a total of 30 minutes was performed, administered by the radiology nurse, with the patie nt consistently monitored throughout the duration of the exam in stable condition. Noncontrasted CT images were obtained through the pelvis. An area was marked overlying the right wilberto c bone, and the area was meticulously prepped and draped in usual sterile fashion. The skin and subcutaneous tissues were infiltrated with buffered 1% lidocaine for local anesthesia. After a small skin incision was made, an 11-gauge needle was advanced and positioning was confirmed w ith axial CT images. Approximately 8 milliliters of bone marrow aspirate was obtained. The needle was then further advanced, and a bone marrow biopsy was performed. The needle was removed, and hemost asis was achieved with direct pressure. The patient tolerated the procedure well and without immediate complication. The patient was transported to radiology nurses holding area for further ilia toring prior to discharge. IMPRESSION: Technically successful percutaneous bone marrow aspiration and biopsy. Pathology results are pending.
[2019-01-07 12:58] LABS: CSF, Glucose 86 mg/dl (40-70); CSF, Protein 128 mg/dL (15-40)
[2019-01-07 13:09] LABS: CSF Source CSF; Clarity Clear (Clear); RBC Count - Manual 1 /cumm (None Seen); Tube # 4; WBC/NonHematics Count - Manual 35 /cumm (0-5)
[2019-01-07 13:47] LABS: Anion Gap 18 mmol/L (10-20); BUN (Urea Nitrogen) 35 mg/dL (9.8-20.1); Calc. Creatinine Clearance 58 mL/min (70-130); Calcium 10.5 mg/dL (7.8-10.44); Carbon Dioxide 21 mmol/L (23-31); Chloride 97 mmol/L (98-107); Estimated GFR-MDRD 56; Glucose 193 mg/dL (80-115); Potassium 3.4 mmol/L (3.5-5.1); Sodium 133 mmol/L (136-145)
[2019-01-07 14:24] LABS: Color Of CSF Supernatant COLORLESS (Colorless); Tube # 2; Unspun CSF Color COLORLESS (Colorless)
[2019-01-07 14:43] LABS: Cell Count Non Hematic 12 %; Lymphocytes 85 %; Segmented Neutrophils 3 %
--- NOTE | 2019-01-07 15:21 | RAD ---
LUMBAR PUNCTURE WITH FLUOROSCOPIC GUIDANCE: 01/07/19 HISTORY: Acquire CSF to assess for possible meningeal carcinomatosis versus infection or other etiologies. EXPOSURE: 0.7 minutes. 206.8 uGy*m2. FINDINGS: Successful lumbar puncture with fluoroscopic guidance. A total of 14 mL of clear CSF was acquired. Initial auction clerk radiograph demonstrates five lumbar type vertebral bodies. No fracture. TECHNIQUE: The patient was placed in an RA position. The L3-L4 level was deemed appropriate. The skin was preppe d and draped in the sterile fashion. 1% lidocaine, buffered with sodium bicarbonate used for local an esthesia. Under fluoroscopic guidance, a 20 gauge spinal needle was advanced in the CSF space. Inner stylet was removed. Prompt flow of clear CSF to the hub of the needle. Via a short tubing catheter, t otal of 14 mL of CSF was acquired. Patient tolerated the procedure well. No immediate or postprocedur e complication. IMPRESSION: Successful lumbar puncture with fluoroscopic guidance. POS: OFF
[2019-01-07] MEDS: methylPREDNISolone Sod Succ 1,000 MG in Sodium Chloride 0.9% 100 ML IVPB SCH (21:01)
[2019-01-08] MEDS: Acetaminophen/Codeine 30-300mg Tablet PO PRN ×3 (01:56→21:21)
--- NOTE | 2019-01-08 05:31 | PDOC.FM ---
- Subjective Subjective: Pt is unchanged from yesterday. She tolerated the lp well. She does have decreased PO intake, eating only ice chips and little food. She states she has some nausea decreasing appetite but has some appetite. Pain well controlled. - Objective Vital Signs & Weight: Vital Signs (12 hours) Temp Pulse Resp BP Pulse Ox 01/08/19 04:00 97.5 F L 101 H 18 130/71 93 L 01/08/19 00:00 97.4 F L 88 18 147/76 H 95 01/07/19 20:00 97.7 F 94 19 136/82 95 Weight Weight 63.276 kg I&O: 01/06/19 01/07/19 01/08/19 06:59 06:59 06:59 Intake Total 80 Balance 80 Result Diagrams: 01/06/19 06:27 01/07/19 13:13 Phys Exam - Physical Examination Constitutional: NAD HEENT: PERRLA dry mucous membranes Neck: no JVD, full ROM Respiratory: clear to auscultation bilateral Cardiovascular: RRR, no significant murmur Gastrointestinal: soft, non-tender, no distention mild pain on deep palpation in LLQ Musculoskeletal: no edema, pulses present 4+/5 strength LUE, 4/5 strenght LLE Dx/Plan (1) Weakness Code(s): R53.1 - WEAKNESS Status: Acute (2) Radiculopathy Code(s): M54.10 - RADICULOPATHY, SITE UNSPECIFIED Status: Acute (3) Cervical stenosis of spine Code(s): M48.02 - SPINAL STENOSIS, CERVICAL REGION Status: Acute (4) Herniated disc, cervical Code(s): M50.20 - OTHER CERVICAL DISC DISPLACEMENT, UNSP CERVICAL REGION Status: Acute (5) Diabetes mellitus Code(s): E11.9 - TYPE 2 DIABETES MELLITUS WITHOUT COMPLICATIONS Status: Acute - Plan Plan: # Progressive Weakness, multiple weeks since onset secondary to lesion noted on MRI at [facility] # Cervical Demyelination # Herniated Cervical Disc Pt was scheduled to see [facility], Neurosurgery, 01/05 concerning new onset symptoms but came to hospital bc she felt uncomfortable with progressive weakness. Symptoms have been present x 2 weeks prompting PCP to order cervical MRI. Pt also was seen in out of town ED concerning symptoms where CT Head, CTA Carotids were performed. TSH WNL. Neurosurg, neurology were consulted on pt, appreciate rec's. Recommended Steroid was initiated 01/07/19 and will start prednisone 40 mg taper 01/08/19 with long taper. Lumbar and thoracic MRI did not reveal significant pathology. Cervical lesion confirmed lesion at cervicomedullary junction. 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 Other considerations are autoimmune, AVM, fistula, and hemangioblastoma, transverse myelitis, infection, primary neoplasm. Large volume LP with cytology of CSF performed 01/07/19 w/ results pending. Neurology will consult Dr. Duran in consideration for a slow infectious process. If workup is negative neurology discussed consideration of biopsy, resection in this location would be difficult. Results/Orders: MRI Cervical revealed stable abnormal signal intensity in the visualized brainstem, cervicomedullary junction, and cervical cord; primary neoplastic is favored, other considerations are cord infarct but less favorable. MRI Thoracic revealed no significant abnormalities MRI Lumbar annjular fissures with disc bulges at L5-L5 and L5-S1; ectopic kidney MRI brain 01/05/19 w/ and w/o revealed abnormal signal intensity involving the middle and cervical medullary junction. Findings are presumed to be due to a primary neoplastic process. Demyelinating process or card infarct are less favored considerations. 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 Weak but normal passive ROM. 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 Follow up on lab testing to further stratify brain lesion. Addendum - Attending - Attending Attestation Date/Time: 01/08/19 1142 I personally evaluated the patient and discussed the management with Dr. Iglesias. I agree with the History, Examination, Assessment and Plan documented above with any addition or exceptions noted below. Patient overall stable this morning, somewhat improved neurologically from yesterday. She continues on steroids while further testing is pending. She did undergo CT C/A/P this morning that revealed large pulmonary embolism. She is asymptomatic about it. Upon questioning, she and do report and increase in shortness of breath that began about 10 days ago, but denies chest pain, palpitations, LOC, and she has had no issues with chest pain or respiratory system dysfunction during her time in the hospital. She will need anticoagulation and will start with Lovenox after we discuss with NSGY about the potential for near future surgical intervention.
[2019-01-08] MEDS: Ondansetron PF 4 MG/2 ML Vial IVP PRN (06:36)
--- NOTE | 2019-01-08 08:01 | PRG ---
DATE OF SERVICE: 01/08/2019 I saw Charis Rodrigez in her hospital room this morning. Her is at the bedside. He had some questions about her ongoing testing. She had taken her oral contrast for her CT scan already. Ms. Rodrigez feels better than she did yesterday. She thinks the steroids are increasing her hand strength and arm strength, and the pain seems more manageable to her. On examination, I do not notice the Tadeo's as much as I did yesterday. The pupils are back to even in size. The ptosis yesterday on the left side seems to be better today. Has good antigravity strength in the left upper extremity. 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 Some of the arm extensors are still weak and as are the leg fractures. Yesterday's lab testing is interesting. She has a lymphocytic pleocytosis in the CSF. In addition to the increase in lymphocytes in the CSF, she has elevated protein and normal glucose. I do not see a protein electrophoresis yet, but that should be done. Enough CSF should be sent to cytology to see if the lymphocytes are abnormal and clonogenic suggestive of tumor. CT imaging today will be helpful, if it shows lymphadenopathy or any mass. We will follow up on these imaging, results are done. Next steps could include angiogram, biopsy, or ACDF depending on what the results show over time. Job ID: [id number]
--- NOTE | 2019-01-08 09:41 | CT ---
CT THORAX WITH CONTRAST CT ABDOMEN WITH CONTRAST CT PELVIS WITH CONTRAST: DATE: 01/08/2019 HISTORY: 63-year-old female with lesion involving cervical spinal cord that may represent a malignant neoplasm . Search for possible primary neoplasm tumor source. Dr. Pham reported the pulmonary thromboembolism by telephone to Dr. Tony Iglesias at 9:37 AM on 01/08. TECHNIQUE: IV iodinated contrast media: Administered Oral contrast media: Administered Single phase scans of thorax, abdomen, and pelvis. FINDINGS: Thorax: There is thrombus at the lateral peripheral aspect of the right main pulmonary artery, extending into adjacent branches, including right middle lobe pulmonary artery, and especially right lobar pulmonary artery, and its branches. There is no thrombus in the pulmonic trunk or left main pulmonary artery. This study was not tailored for pulmonary thromboembolism, and therefore it is difficult to evaluate the peripheral branches of the pulmonary arteries. There is questionable thrombus in peripheral branches of left lower lobe p ulmonary artery. There is a broad region of consolidation involving the anterolateral base of the left lower lobe whic h is probably subsegmental atelectasis. There is a smaller possibly due to this could represent a pulmonary infarction. No suspicious pulmonary mass or suspicious pulmonary nodule. No pleural effusio n or pneumothorax. No pulmonary edema. Small filling defect in right side of the upper trachea probably represents mucus secretion. Oral contrast material within mildly dilated esophagus. Small pe ricardial effusion. No mediastinal or hilar lymphadenopathy. No thoracic aortic aneurysm or dissection. abdomen: No tumor mass involving liver. Distended gallbladder. No splenomegaly. Mild hydronephrosis of left ki dney. No left renal tumor identified. Nonspecific 1.5 x 1.5 cm left adrenal nodule. Absence of kidney at right renal fossa. Calcified and noncalcified extensive atheromatous plaque throughout abdo fara aorta. 2.5 cm fusiform ectasia of infrarenal abdominal aorta. Approximately 40% luminal stenosis of the abdominal aorta at that level by noncalcified plaque. No retroperitoneal lymphadenopa thy. No pancreatic mass or acute pancreatitis. Large amount of gas throughout the colon causing distention. No signs of colitis. Large amount of stool in right colon. No small bowel dilation. Pelvis: Distended urinary bladder with normal, thin franklin. Intrapelvic location of right kidney with malrotat ion. No right renal tumor or right hydronephrosis. No iliac chain lymphadenopathy. Nonspecific fat stranding suggestive of edema and/or small amount of free fluid in the posterior inferior aspect of t he pelvic cavity around the rectum and posterior to the bladder. Skeleton: No destructive osseous lesion identified. IMPRESSION: 1) pulmonary thromboembolism: Definitely on the right side. Questionably on the left side. 2) nonspecific 1.5 cm left adrenal nodule. 3) otherwise no evidence of malignant neoplasm. 4) ectopic pelvic right kidney.
[2019-01-08] MEDS ORDERED: predniSONE 20 MG TAB PO SCH ×2 (09:50→10:00)
[2019-01-08] MEDS: carBAMazepine 100 mg Chewable Tablet PO SCH ×2 (10:33→21:18)
[2019-01-08] MEDS: Losartan 25 MG TAB PO SCH (10:35)
[2019-01-08] MEDS: Rosuvastatin 5 MG TAB PO SCH (10:35)
[2019-01-08] MEDS: Gabapentin 100 MG CAP PO SCH ×3 (10:36→21:17)
[2019-01-08] MEDS: Lactated Ringer's 1,000 ML IV SCH ×2 (10:37→21:14)
[2019-01-08] MEDS: metFORMIN XR 500 MG TAB PO SCH ×2 (10:37→20:11)
[2019-01-08] MEDS: Polyethylene Glycol 3350 17 GM Packet PO PRN (10:39)
--- NOTE | 2019-01-08 16:25 | PDOC.EVN ---
Event Note - Event Note Event Note: Due to pulmonary embolism diagnosed today on CT will start therapeutic Lovenox 1mg/kg to begin 1700 on 01/08/19, 24 hours after lumbar puncture. Tony Iglesias DO Patient questioned and noted to be asymptomatic. It appears that her only episode of shortness of breath was approximately 10 days ago, and has otherwise been stable. She is in need of anticoagulation, and has been very hemodynamically stable through the day. Contraindication to anticoagulation until 24 hours post LP. She will be started on therapeutic lovenox this evening. Rachel Crisostomo MD
[2019-01-08 16:35] LABS: Ref Lab Test Ordered PE CSF; Reference Lab Name LABCORP
[2019-01-08] MEDS: Enoxaparin Sodium 60 MG/0.6 ML SYRINGE SC SCH (17:37)
[2019-01-08] MEDS: Senokot 8.6 MG TAB PO PRN (21:18)
--- NOTE | 2019-01-08 21:21 | CON ---
DATE OF CONSULTATION: 01/08/2019 HISTORY OF PRESENT ILLNESS: Ms. Rodrigez reports that she is feeling like the left side is a bit more strong than it was before. She has received her 2 doses of Solu-Medrol. Her spinal fluid analysis showed 35 white cells with an elevated protein level. Given these findings, it is unlikely that an intramedullary tumor is the etiology of her condition. These findings would be consistent with transverse myelitis type process. I would continue a prednisone tapered from 60 mg down over the next 10 days. She can be screened for rehab, unfortunate development of a pulmonary embolus is being addressed with anticoagulation. We can send out some further lab work to determine whether there is any antibodies that would account for her illness including HTLV1, anti-MOG, anti-NMO antibodies. We will be happy to follow in her care. Job ID: [id number]
[2019-01-09] MEDS: Enoxaparin Sodium 60 MG/0.6 ML SYRINGE SC SCH ×2 (05:29→17:43)
[2019-01-09] MEDS ORDERED: Dextrose 50% Abboject 50 ML SYRINGE SLOW IVP PRN (05:42)
[2019-01-09] MEDS ORDERED: Dextrose 5% in Water 1,000 ML IV PRN (05:42)
[2019-01-09] MEDS: HumaLOG 300 UNITS/3 ML VIAL SC PRN ×4 (06:06→22:47)
[2019-01-09] MEDS: Lactated Ringer's 1,000 ML IV SCH (06:07)
--- NOTE | 2019-01-09 06:23 | PDOC.FM ---
- Subjective Subjective: Pt continues to be in good spirits. She states her LUE has regained some strength but no change in LLE. She remains with a mild appetite. No BM since this previous weekend. She has some abdominal distention and vague abdominal pain. Her breathing unchanged, denies chest pain - Objective Vital Signs & Weight: Vital Signs (12 hours) Temp Pulse Resp BP Pulse Ox 01/09/19 04:00 97.7 F 119 H 16 132/68 93 L 01/08/19 23:54 97.9 F 107 H 16 148/85 H 93 L 01/08/19 20:00 97.6 F 110 H 18 145/84 H 92 L Weight Weight 63.276 kg I&O: 01/07/19 01/08/19 01/09/19 06:59 06:59 06:59 Intake Total 150 1800 Balance 150 1800 Result Diagrams: 01/06/19 06:27 01/07/19 13:13 Phys Exam - Physical Examination Constitutional: NAD HEENT: PERRLA, moist MMs Pupils reactive to light, unable to discriminate size discrepancy Respiratory: no wheezing, clear to auscultation bilateral Cardiovascular: no significant murmur tachycardic regular rhythm Gastrointestinal: soft, non-tender, positive bowel sounds abdomen distended but not rigid, mild discomfort when palpated Musculoskeletal: no edema Bilateral LE were similar in appearance, no swelling or pain LLE 4/5, LUE 4+/5, CN II-XII intact Psychiatric: normal affect, A&O x 3 Dx/Plan (1) Weakness Code(s): R53.1 - WEAKNESS Status: Acute (2) Radiculopathy Code(s): M54.10 - RADICULOPATHY, SITE UNSPECIFIED Status: Acute (3) Cervical stenosis of spine Code(s): M48.02 - SPINAL STENOSIS, CERVICAL REGION Status: Acute (4) Herniated disc, cervical Code(s): M50.20 - OTHER CERVICAL DISC DISPLACEMENT, UNSP CERVICAL REGION Status: Acute (5) Diabetes mellitus Code(s): E11.9 - TYPE 2 DIABETES MELLITUS WITHOUT COMPLICATIONS Status: Acute - Plan Plan: # Progressive Weakness, multiple weeks since onset secondary to lesion noted on MRI at [facility] # Cervical Demyelination # Herniated Cervical Disc Pt was scheduled to see [facility], Neurosurgery, 01/05 concerning new onset symptoms but came to hospital bc she felt uncomfortable with progressive weakness. Symptoms have been present x 2 weeks prompting PCP to order cervical MRI. Pt also was seen in out of town ED concerning symptoms where CT Head, CTA Carotids were performed. TSH WNL. Neurosurg, neurology were consulted on pt, appreciate rec's. Recommended Steroid was initiated 01/07/19 and will start prednisone 60 mg taper 01/08/19 with [address] Espinal. Lumbar and thoracic MRI did not reveal significant pathology. Cervical lesion confirmed lesion at cervicomedullary junction. CT Chest/Abdomen/Pelvis negative for malignancy work up, less likely secondary carcinoma brain lesion. Other considerations are autoimmune, AVM, fistula, and hemangioblastoma, transverse myelitis, infection, primary neoplasm. Large volume LP, 01/07/19 with cytology, electrophoresis pending; HTLV1, Anti-mog, Anti-NMO pending. If workup is negative neurology discussed consideration of biopsy, resection in this location would be difficult. Consequently on 01/08 CT, PE found and Lovenox 1mg/kg started. Pt did not overtly complain of classic symptoms but did state she remembers becoming SOB with onset of weakness, HR has been tachy. At this time will put in for a rehab screen if pt is able to tolerate workup outside of hospital. Results/Orders: MRI Cervical revealed stable abnormal signal intensity in the visualized brainstem, cervicomedullary junction, and cervical cord; primary neoplastic is favored, other considerations are cord infarct but less favorable. MRI Thoracic revealed no significant abnormalities MRI Lumbar annjular fissures with disc bulges at L5-L5 and L5-S1; ectopic kidney MRI brain 01/05/19 w/ and w/o revealed abnormal signal intensity involving the middle and cervical medullary junction. Findings are presumed to be due to a primary neoplastic process. Demyelinating process or card infarct are less favored considerations. MRI neck (outside facility): demyelinating lesion C1-C5/6, spinal stenosis, herniated disk CT head (outside facility): chronic white matter lesions, 2mm incidental vertebral aneurysm CTA carotids: neg CT Head noncontrast 01/05 - unremarkable for acute pathology Pending CT Contrast Chest/Abdomen/Pelvis B12, Folate, TSH WNL; RPR non-reactive Neurosurg consult, appreciate recs; Neurology sonsult, appreciate recs Consider ID if workup is negative - Prednisone 60 mg daily 10 day taper; shown to be therapeutic at this time - Pending CSF electrophoresis; pending HTLV1, Anti-mog, Anti- NMO - Rehab Screen # Pulmonary Embolism R sided involvement w/ possible L sided involvement noted on 01/08 CT scan. - started therapeutic lovenox 01/08/19. Discussed with NS who agreed, just asked no anticoags be taken by mouth. If surg is needed Lovenox will need to be d/c 24 hours beforehand. 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 Weak but normal passive ROM. - Ankle xray revealed no acute process, posterior calcaneal spur # DM II Denies HLD, HTN even though on therapy, possibly on medication for prevention but pt was unsure - losartan, statin therapy - Held metformin, SSI started # Ectopic Kidney Visualized on Lumbar MRI Diet: Heart Healthy Diet Fluids: None, PO Intake DVT Prophalaxis: SCD's --> Considering lovenox as pt has likely malignancy Code: Full Dispo: Observation as symptoms are not new onset within previous 24-48 hours but are progressively becoming worse. Follow up on lab testing to further stratify brain lesion. Addendum - Attending - Attending Attestation Date/Time: 01/09/19 9932 I personally evaluated the patient and discussed the management with Dr. Iglesias. I agree with the History, Examination, Assessment and Plan documented above with any addition or exceptions noted below. Patient overall doing well. Her weakness is improving somewhat. Labs pending but it is currently looking more like inflammatory process than malignancy. She is to continue on steroids. PT consulted and rehab screen placed. She continues on lovenox for PE. Has some tachycardia but no increased O2 requirement. If malignancy ruled out, she will be able to be discharged on NOAC. Await recs from NSGY and Neurology.
[2019-01-09] MEDS ORDERED: predniSONE 20 MG TAB PO SCH (08:00)
[2019-01-09] MEDS: carBAMazepine 100 mg Chewable Tablet PO SCH ×2 (09:56→22:45)
[2019-01-09] MEDS: Gabapentin 100 MG CAP PO SCH ×3 (09:57→22:46)
[2019-01-09] MEDS: Rosuvastatin 5 MG TAB PO SCH (09:57)
[2019-01-09] MEDS: predniSONE 20 MG TAB PO SCH (09:57)
[2019-01-09] MEDS: Losartan 25 MG TAB PO SCH (09:59)
[2019-01-09] MEDS: metFORMIN XR 500 MG TAB PO SCH ×2 (10:00→23:12)
[2019-01-09] MEDS: Polyethylene Glycol 3350 17 GM Packet PO PRN (11:32)
[2019-01-09 12:35] LABS: INR-International Normal Ratio 1.2; PTT 30.7 SEC (22.9-36.1); Prothrombin Time 14.8 SEC (12.0-14.7)
[2019-01-09 13:59] LABS: Ref Lab Test Ordered HTLVI
[2019-01-09] MEDS: Acetaminophen/Codeine 30-300mg Tablet PO PRN (14:31)
[2019-01-09 15:49] LABS: Glucose Accucheck Confirmation 240 mg/dl (80-115)
[2019-01-09 16:30] LABS: ANA Symphony (Qualitative) Negative (Negative); ANA Symphony (Quantitative) Less than 0.1 Ratio (< 0.7 Negative); Cardiolipin IgA Ab 2.5 APL-U/mL (<14 Negative); Cardiolipin IgG Ab Less than 0.5 GPL-U/mL (<10 Negative); Cardiolipin IgM Ab 4.9 MPL-U/mL (<10 Negative); EliA APS New Method **** NEW METHOD ****; beta-2-Glycoprotein I IgA Ab 1.6 U/mL (<7 Negative); beta-2-Glycoprotein I IgG Ab Less than 0.6 U/mL (<7 Negative); beta-2-Glycoprotein I IgM Abs Less than 2.9 U/mL (<7 Negative); dsDNA IgG Antibody Less than 0.5 IU/mL (<10 Negative)
[2019-01-09] MEDS: Senokot 8.6 MG TAB PO PRN (22:56)
--- NOTE | 2019-01-10 05:36 | PDOC.FM ---
- Subjective Subjective: Pt is doing well today. Overnight she needed oxygen at 1 L. This corrected saturation from 92% to 100%. She endorsed dyspnea while working PT/OT but is hopeful oxygen will help her work PT/OT today. - Objective Vital Signs & Weight: Vital Signs (12 hours) Temp Pulse Resp BP BP Pulse Ox 01/10/19 04:00 98.3 F 108 H 16 112/63 96 01/09/19 23:58 97.5 F L 91 16 120/67 100 01/09/19 20:50 97.6 F 108 H 16 125/78 94 L Weight Weight 63.276 kg I&O: 01/08/19 01/09/19 01/10/19 06:59 06:59 06:59 Intake Total 150 2040 789 Balance 150 2040 789 Result Diagrams: 01/06/19 06:27 01/07/19 13:13 Phys Exam - Physical Examination Constitutional: NAD Respiratory: no wheezing, no rales Crackles appreciated on R posterior lung Cardiovascular: no significant murmur Tachycardic, regular rhythm Gastrointestinal: soft, non-tender discomfort on palpation but no pain, mildly distended Musculoskeletal: pulses present Left leg on appearance seems to be mildly larger than right Psychiatric: normal affect, A&O x 3 Dx/Plan (1) Weakness Code(s): R53.1 - WEAKNESS Status: Acute (2) Radiculopathy Code(s): M54.10 - RADICULOPATHY, SITE UNSPECIFIED Status: Acute (3) Cervical stenosis of spine Code(s): M48.02 - SPINAL STENOSIS, CERVICAL REGION Status: Acute (4) Herniated disc, cervical Code(s): M50.20 - OTHER CERVICAL DISC DISPLACEMENT, UNSP CERVICAL REGION Status: Acute (5) Diabetes mellitus Code(s): E11.9 - TYPE 2 DIABETES MELLITUS WITHOUT COMPLICATIONS Status: Acute - Plan Plan: # Progressive Weakness, multiple weeks since onset secondary to lesion noted on MRI at [facility] # Cervical Demyelination # Herniated Cervical Disc Pt was scheduled to see [facility], Neurosurgery, 01/05 concerning new onset symptoms but came to hospital bc she felt uncomfortable with progressive weakness. Symptoms have been present x 2 weeks prompting PCP to order cervical MRI. Pt also was seen in out of town ED concerning symptoms where CT Head, CTA Carotids were performed. TSH WNL. Neurosurg, neurology were consulted on pt, appreciate rec's. Recommended Steroid was initiated 01/07/19 and will start prednisone 60 mg taper 01/08/19 with [address] Espinal. Lumbar and thoracic MRI did not reveal significant pathology. Cervical lesion confirmed lesion at cervicomedullary junction. CT Chest/Abdomen/Pelvis negative for malignancy work up, less likely secondary carcinoma brain lesion. Other considerations are autoimmune, AVM, fistula, and hemangioblastoma, transverse myelitis, infection, primary neoplasm. Large volume LP, 01/07/19 with cytology, electrophoresis pending; HTLV1, Anti-mog, Anti-NMO pending. Lupus work up negative. If all workup is negative neurology discussed consideration of biopsy, resection in this location would be difficult. Consequently on 01/08 CT, PE found and Lovenox 1mg/kg started. Pt did not overtly complain of classic symptoms but did state she remembers becoming SOB with onset of weakness, HR has been tachy. PT recommends physical therapy at this time. Results/Orders: MRI Cervical revealed stable abnormal signal intensity in the visualized brainstem, cervicomedullary junction, and cervical cord; primary neoplastic is favored, other considerations are cord infarct but less favorable. MRI Thoracic revealed no significant abnormalities MRI Lumbar annjular fissures with disc bulges at L5-L5 and L5-S1; ectopic kidney MRI brain 01/05/19 w/ and w/o revealed abnormal signal intensity involving the middle and cervical medullary junction. Findings are presumed to be due to a primary neoplastic process. Demyelinating process or card infarct are less favored considerations. MRI neck (outside facility): demyelinating lesion C1-C5/6, spinal stenosis, herniated disk CT head (outside facility): chronic white matter lesions, 2mm incidental vertebral aneurysm CTA carotids: neg CT Head noncontrast 01/05 - unremarkable for acute pathology CT Contrast Chest/Abdomen/Pelvis revealed no malignancy but did show significant R sided PE. B12, Folate, TSH WNL; RPR non-reactive Neurosurg consult, appreciate recs; Neurology sonsult, appreciate recs Consider ID if workup is negative - Prednisone 60 mg daily 10 day taper; shown to be therapeutic at this time - Pending CSF electrophoresis; pending HTLV1, Anti-mog, Anti- NMO # Pulmonary Embolism R sided involvement w/ possible L sided involvement noted on 01/08 CT scan. she began requiring 1 L Oxygen NC. - started therapeutic lovenox 01/08/19. Discussed with NS who agreed, just asked no anticoags be taken by mouth. If surg is needed Lovenox will need to be d/c 24 hours beforehand. - Left leg seems mildly larger than [place]. She denies pain. Consider LLE Doppler for source of PE with given findings. 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 Weak but normal passive ROM. - Ankle xray revealed no acute process, posterior calcaneal spur # DM II Denies HLD, HTN even though on therapy, possibly on medication for prevention but pt was unsure - losartan, statin therapy - Held metformin, SSI started # Ectopic Kidney Visualized on Lumbar MRI Diet: Heart Healthy Diet Fluids: None, PO Intake DVT Prophalaxis: SCD's --> Considering lovenox as pt has likely malignancy Code: Full Dispo: Pt has been stable with left sided deficits, no change in breathing since admission, pending discharge with workup. Addendum - Attending - Attending Attestation Date/Time: 01/10/19 1143 I personally evaluated the patient and discussed the management with Dr. Iglesias. I agree with the History, Examination, Assessment and Plan documented above with any addition or exceptions noted below. Patient with some noted improvement this morning, able to move her extremities a little more. Denies pain. Had some dyspnea that is improved with supplemental O2. SHe continues on steroid treatment for suggested transverse myelitis, while other studies are pending. She also continues on lovenox for PE treatment. Will obtain LE U/S today. Will need at minimum 3 months of OAC. Awaiting further recs from Neuro and NSGY.
[2019-01-10] MEDS: HumaLOG 300 UNITS/3 ML VIAL SC PRN ×4 (05:43→20:37)
[2019-01-10] MEDS: predniSONE 20 MG TAB PO SCH (08:52)
[2019-01-10] MEDS: Rosuvastatin 5 MG TAB PO SCH (08:52)
[2019-01-10] MEDS: carBAMazepine 100 mg Chewable Tablet PO SCH ×2 (08:53→20:35)
[2019-01-10] MEDS: Losartan 25 MG TAB PO SCH (08:54)
[2019-01-10] MEDS: Gabapentin 100 MG CAP PO SCH ×3 (08:54→20:35)
[2019-01-10] MEDS: metFORMIN XR 500 MG TAB PO SCH ×2 (08:55→20:35)
[2019-01-10] MEDS: Enoxaparin Sodium 60 MG/0.6 ML SYRINGE SC SCH ×2 (08:56→20:36)
[2019-01-10] MEDS: Polyethylene Glycol 3350 17 GM Packet PO PRN (10:10)
--- NOTE | 2019-01-10 11:35 | ULT ---
BILATERAL LOWER EXTREMITY VENOUS DOPPLER ULTRASOUND: HISTORY: Left lower extremity swelling. Pulmonary embolism. TECHNIQUE: Smith-scale ultrasound with color-flow and spectral Doppler imaging of the deep venous systems of the lower extremities was performed bilaterally. FINDINGS: There is good flow, compression, and augmentation noted in the left common femoral, femoral, deep fem oral, popliteal, posterior tibial, and greater saphenous veins. There is absence of compression with decreased flow in the right popliteal vein and the intraluminal thrombus in the right posterior tibial vein. Deep venous thrombosis in the right lower extremity. IMPRESSION: Deep venous thrombosis in the right lower extremity. The report was called over the telephone to the patient's nurse (Santana Stanford) at 11:13 a.m. CODE KELLY POS: MERYL
[2019-01-10] MEDS: Acetaminophen/Codeine 30-300mg Tablet PO PRN (13:48)
--- NOTE | 2019-01-10 14:59 | EKG ---
Test Reason : Blood Pressure : / mmHG Vent. Rate : 071 BPM Atrial Rate : 071 BPM P-R Int : 150 ms QRS Dur : 074 ms QT Int : 376 ms P-R-T Axes : 075 045 053 degrees QTc Int : 408 ms Normal sinus rhythm Possible Left atrial enlargement Borderline ECG Confirmed by JAIDEN BORDEN MD ([id number]), medical transcription editor GLENDA KWAN ([id number]) on 01/10/2019 2:58:42 PM Referred By: Confirmed By:JAIDEN BORDEN MD
[2019-01-10] MEDS: Senokot 8.6 MG TAB PO PRN (20:39)
--- NOTE | 2019-01-11 05:26 | PDOC.FM ---
- Subjective Subjective: Pt is having a difficult morning. She has remained in good spirits since admission but she is beginning to become fatigued. She remains without a BM at this time even after suds enema. Her appetite stable but down from her baseline before admission. - Objective Vital Signs & Weight: Vital Signs (12 hours) Temp Pulse Resp BP Pulse Ox 01/11/19 04:00 98.2 F 117 H 16 133/70 94 L 01/11/19 00:00 97.9 F 83 16 118/64 95 01/10/19 20:00 97.6 F 104 H 16 133/80 95 Weight Weight 63.276 kg I&O: 01/09/19 01/10/19 01/11/19 06:59 06:59 06:59 Intake Total 0 889 660 Balance 0 889 660 Result Diagrams: 01/06/19 06:27 01/07/19 13:13 Phys Exam - Physical Examination Constitutional: NAD HEENT: PERRLA, moist MMs Respiratory: clear to auscultation bilateral Cardiovascular: RRR, no significant murmur Gastrointestinal: soft, positive bowel sounds mildly tender to palpation, distention but no rigidity LLE 4/5, LUE 4+/5, sensation intact Psychiatric: normal affect, A&O x 3 Dx/Plan (1) Weakness Code(s): R53.1 - WEAKNESS Status: Acute (2) Radiculopathy Code(s): M54.10 - RADICULOPATHY, SITE UNSPECIFIED Status: Acute (3) Cervical stenosis of spine Code(s): M48.02 - SPINAL STENOSIS, CERVICAL REGION Status: Acute (4) Herniated disc, cervical Code(s): M50.20 - OTHER CERVICAL DISC DISPLACEMENT, UNSP CERVICAL REGION Status: Acute (5) Diabetes mellitus Code(s): E11.9 - TYPE 2 DIABETES MELLITUS WITHOUT COMPLICATIONS Status: Acute - Plan Plan: # Progressive Weakness, multiple weeks since onset secondary to lesion noted on MRI at [facility] # Cervical Demyelination # Herniated Cervical Disc Pt was scheduled to see [facility] Spine, Neurosurgery, 01/05 concerning new onset symptoms but came to hospital bc she felt uncomfortable with progressive weakness. Symptoms have been present x 2 weeks prompting PCP to order cervical MRI. Pt also was seen in out of town ED concerning symptoms where CT Head, CTA Carotids were performed. TSH WNL. Neurosurg, neurology were consulted on pt, appreciate rec's. Recommended Steroid was initiated 01/07/19 and will start prednisone 60 mg taper 01/08/19 with [address] Espinal. Lumbar and thoracic MRI did not reveal significant pathology. Cervical lesion confirmed lesion at cervicomedullary junction. CT Chest/Abdomen/Pelvis negative for malignancy work up, less likely secondary carcinoma brain lesion. Other considerations are autoimmune, AVM, fistula, and hemangioblastoma, transverse myelitis, infection, primary neoplasm. Large volume LP, 01/07/19 with cytology, electrophoresis pending; HTLV1, Anti-mog, Anti-NMO pending. Lupus work up negative. If all workup is negative neurology discussed consideration of biopsy, resection in this location would be difficult. Consequently on 01/08 CT, PE found and Lovenox 1mg/kg started. Pt did not overtly complain of classic symptoms but did state she remembers becoming SOB with onset of weakness, HR has been tachy. PT recommends physical therapy at this time. Pending rehab screen, can follow up pt's care/labs in the rehab setting. 01/11 pt became tearful due to disposition, inability to ambulate, and remaining bedridden. She has good support and until now has remained positive. Results/Orders: MRI Cervical revealed stable abnormal signal intensity in the visualized brainstem, cervicomedullary junction, and cervical cord; primary neoplastic is favored, other considerations are cord infarct but less favorable. MRI Thoracic revealed no significant abnormalities MRI Lumbar annjular fissures with disc bulges at L5-L5 and L5-S1; ectopic kidney MRI brain 01/05/19 w/ and w/o revealed abnormal signal intensity involving the middle and cervical medullary junction. Findings are presumed to be due to a primary neoplastic process. Demyelinating process or card infarct are less favored considerations. MRI neck (outside facility): demyelinating lesion C1-C5/6, spinal stenosis, herniated disk CT head (outside facility): chronic white matter lesions, 2mm incidental vertebral aneurysm CTA carotids: neg CT Head noncontrast 01/05 - unremarkable for acute pathology CT Contrast Chest/Abdomen/Pelvis revealed no malignancy but did show significant R sided PE. B12, Folate, TSH WNL; RPR non-reactive Neurosurg consult, appreciate recs; Neurology sonsult, appreciate recs Consider ID if workup is negative - Prednisone 60 mg daily 10 day taper; shown to be therapeutic at this time - Pending CSF electrophoresis; pending HTLV1, Anti-mog, Anti- NMO # Pulmonary Embolism # DVT Right Posterior Tibial Vein R sided involvement w/ possible L sided involvement noted on 01/08 CT scan. she began requiring 1 L Oxygen NC. U/S 01/10 revealed RLE thrombus. - started therapeutic lovenox 01/08/19. Discussed with NS who agreed, just asked no anticoags be taken by mouth. If surg is needed Lovenox will need to be d/c 24 hours beforehand. - Left leg seems mildly larger than Right. She denies pain. Possibly secondary to limited motion; cont PT/OT # Normal Response to difficult disposition - consider palliative to discuss pt's feelings/understanding of disposition # Constipation - miralax, senna, suds enema given w/o relief on 01/11 - consider x-ray # Hypertension - Pt recently has labile blood pressures from normotensive to hypertensive, currently on home BP losartan. The dysregulation could be secondary to dysautonomia secondary to neurologic process as above. Will continue to follow. 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 Weak but normal passive ROM. - Ankle xray revealed no acute process, posterior calcaneal spur # DM II Denies HLD, HTN even though on therapy, possibly on medication for prevention but pt was unsure - losartan, statin therapy - Held metformin, SSI started # Ectopic Kidney Visualized on Lumbar MRI Diet: Heart Healthy Diet Fluids: None, PO Intake DVT Prophalaxis: SCD's --> Considering lovenox as pt has likely malignancy Code: Full Dispo: Pt has been stable with left sided deficits, pending rehab screen as workup can be continued out of the hospital setting. Addendum - Attending - Attending Attestation Date/Time: 01/11/19 4348 I personally evaluated the patient and discussed the management with Dr. Iglesias. I agree with the History, Examination, Assessment and Plan documented above with any addition or exceptions noted below. Patient here with suspected transvere myelitis. She is overall stable. Continue pain control and steroids. Continue therapy and await rehab screen. She is also to continue on Lovenox for VTE. Vitals stable and she is not requiring supplemental O2. Labs still pending from her LP.
[2019-01-11] MEDS: HumaLOG 300 UNITS/3 ML VIAL SC PRN ×4 (07:01→21:08)
[2019-01-11] MEDS: carBAMazepine 100 mg Chewable Tablet PO SCH ×2 (08:55→21:00)
[2019-01-11] MEDS: Enoxaparin Sodium 60 MG/0.6 ML SYRINGE SC SCH ×2 (08:55→21:01)
[2019-01-11] MEDS: Rosuvastatin 5 MG TAB PO SCH (08:55)
[2019-01-11] MEDS: Losartan 25 MG TAB PO SCH (08:56)
[2019-01-11] MEDS: predniSONE 50 MG TAB PO SCH (08:56)
[2019-01-11] MEDS: Gabapentin 100 MG CAP PO SCH ×3 (08:56→21:02)
[2019-01-11] MEDS: metFORMIN XR 500 MG TAB PO SCH ×2 (08:56→21:01)
--- NOTE | 2019-01-11 09:50 | PRG ---
DATE OF SERVICE: 01/11/2019 Ms. Rodrigez remains in the stroke unit. She is undergoing a fairly extensive evaluation for spinal cord and brainstem lesion. Results have been coming in slowly. She has been diagnosed recently with DVT and PE, for which she is being treated with Lovenox. Once Dr. Recinos returns, he will have a discussion with her regarding the definitive management. Job ID: [id number]
[2019-01-11] MEDS ORDERED: Senokot 8.6 MG TAB PO SCH (10:00)
[2019-01-11] MEDS: Acetaminophen/Codeine 30-300mg Tablet PO PRN (10:33)
[2019-01-11] MEDS ORDERED: Lactated Ringer's 1,000 ML IV SCH (15:45)
[2019-01-11] MEDS ORDERED: Fleet Enema 133 ML BOT PR PRN (15:48)
--- NOTE | 2019-01-11 15:59 | PDOC.EVN ---
Event Note - Event Note Event Note: called to bedside for dark urine and constipation patient denies burning or blood wiht urination Admits she has not been drinking much fluid today Will give 1L of LR over 5 hours NIKOLAS was able to express 2 quarter size formed stool balls cont bowel regimen, soad suds enemas PRN Fluids may assist with constipation
[2019-01-11] MEDS: Senokot 8.6 MG TAB PO SCH (21:01)
[2019-01-11] MEDS: Polyethylene Glycol 3350 17 GM Packet PO SCH (21:01)
[2019-01-12] MEDS: Acetaminophen/Codeine 30-300mg Tablet PO PRN (03:45)
--- NOTE | 2019-01-12 05:46 | PDOC.FM ---
- Subjective Subjective: Pt voices no complaints at this time. Pain is controlled. Remains w/o bm. - Objective Vital Signs & Weight: Vital Signs (12 hours) Temp Pulse Resp BP Pulse Ox 01/12/19 03:53 98.1 F 118 H 16 154/88 H 94 L 01/11/19 23:05 97.2 F L 104 H 16 136/75 95 01/11/19 20:00 96.2 F L 105 H 16 149/85 H 95 Weight Weight 63.276 kg I&O: 01/10/19 01/11/19 01/12/19 06:59 06:59 06:59 Intake Total 889 900 710 Output Total 0 Balance 889 900 710 Result Diagrams: 01/06/19 06:27 01/07/19 13:13 Phys Exam - Physical Examination Constitutional: NAD HEENT: PERRLA dry mucous membranes Respiratory: clear to auscultation bilateral Cardiovascular: RRR, no significant murmur Gastrointestinal: soft, positive bowel sounds tender to light palpation, mild distention Left leg remains slightly larger than right LUE 4+/5, LLE 4/5, sensation to touch intact Psychiatric: normal affect, A&O x 3 Dx/Plan (1) Weakness Code(s): R53.1 - WEAKNESS Status: Acute (2) Radiculopathy Code(s): M54.10 - RADICULOPATHY, SITE UNSPECIFIED Status: Acute (3) Cervical stenosis of spine Code(s): M48.02 - SPINAL STENOSIS, CERVICAL REGION Status: Acute (4) Herniated disc, cervical Code(s): M50.20 - OTHER CERVICAL DISC DISPLACEMENT, UNSP CERVICAL REGION Status: Acute (5) Diabetes mellitus Code(s): E11.9 - TYPE 2 DIABETES MELLITUS WITHOUT COMPLICATIONS Status: Acute - Plan Plan: # Progressive Weakness, multiple weeks since onset secondary to lesion noted on MRI at Cervicomedullary [facility]unction # Cervical Demyelination # Herniated Cervical Disc Pt was scheduled to see [facility] Spine, Neurosurgery, 01/05 concerning new onset symptoms but came to hospital bc she felt uncomfortable with progressive weakness. Symptoms have been present x 2 weeks prompting PCP to order cervical MRI. Pt also was seen in out of town ED concerning symptoms where CT Head, CTA Carotids were performed. TSH WNL. Neurosurg, neurology were consulted on pt, appreciate rec's. Recommended Steroid was initiated 01/07/19 and will start prednisone 60 mg taper 01/08/19 with [address] Espinal. Lumbar and thoracic MRI did not reveal significant pathology. Cervical lesion confirmed lesion at cervicomedullary junction. CT Chest/Abdomen/Pelvis negative for malignancy work up, less likely secondary carcinoma brain lesion. Other considerations are autoimmune, AVM, fistula, and hemangioblastoma, transverse myelitis, infection, primary neoplasm. Large volume LP, 01/07/19 with cytology, electrophoresis pending; HTLV1, Anti-mog, Anti-NMO pending. Lupus work up negative. If all workup is negative neurology discussed consideration of biopsy, resection in this location would be difficult. Consequently on 01/08 CT, PE found and Lovenox 1mg/kg started. Pt did not overtly complain of classic symptoms but did state she remembers becoming SOB with onset of weakness, HR has been tachy. PT recommends physical therapy at this time. Pending rehab screen, can follow up pt's care/labs in the rehab setting. 01/11 pt became tearful due to disposition, inability to ambulate, and remaining bedridden. She has good support and until now has remained positive. Results/Orders: MRI Cervical revealed stable abnormal signal intensity in the visualized brainstem, cervicomedullary junction, and cervical cord; primary neoplastic is favored, other considerations are cord infarct but less favorable. MRI Thoracic revealed no significant abnormalities MRI Lumbar annjular fissures with disc bulges at L5-L5 and L5-S1; ectopic kidney MRI brain 01/05/19 w/ and w/o revealed abnormal signal intensity involving the middle and cervical medullary junction. Findings are presumed to be due to a primary neoplastic process. Demyelinating process or card infarct are less favored considerations. MRI neck (outside facility): demyelinating lesion C1-C5/6, spinal stenosis, herniated disk CT head (outside facility): chronic white matter lesions, 2mm incidental vertebral aneurysm CTA carotids: neg CT Head noncontrast 01/05 - unremarkable for acute pathology CT Contrast Chest/Abdomen/Pelvis revealed no malignancy but did show significant R sided PE. B12, Folate, TSH WNL; RPR non-reactive Neurosurg consult, appreciate recs; Neurology sonsult, appreciate recs Consider ID if workup is negative - Prednisone 60 mg daily 10 day taper; shown to be therapeutic at this time - Pending CSF electrophoresis; pending HTLV1, Anti-mog, Anti- NMO # Pulmonary Embolism # DVT Right Posterior Tibial Vein R sided pulm involvement w/ possible L sided involvement noted on 01/08 CT scan. 01/10/19 she began requiring 1 L Oxygen NC. U/S 01/10 revealed RLE thrombus. - started therapeutic lovenox 01/08/19. Discussed with NS who agreed, just asked no anticoags be taken by mouth. If surg is needed Lovenox will need to be d/c 24 hours beforehand. - Left leg seems mildly larger than Right. She denies pain. Possibly secondary to limited motion; cont PT/OT # Normal Response to difficult disposition - consider palliative to discuss pt's feelings/understanding of disposition # Constipation - miralax bid, senna bid, suds enema prn. Digital dismipactino 01/11 with little stool burden relief. Hydration could possibly help with burden. Monitor. # Elevated Blood Pressures Cont home BP med. - Pt recently has labile blood pressures from normotensive to hypertensive, currently on home BP losartan. The dysregulation could be secondary to dysautonomia secondary to neurologic process as above. Will continue to follow. 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 Weak but normal passive ROM. - Ankle xray revealed no acute process, posterior calcaneal spur # DM II Denies HLD, HTN even though on therapy, possibly on medication for prevention but pt was unsure - losartan, statin therapy - Restarted metformin at 500 mg PO BID - consider increase to home dose, SSI started # Ectopic Kidney Visualized on Lumbar MRI Diet: Heart Healthy Diet Fluids: PO - monitor as pt has decreased PO intake DVT Prophalaxis: Therapeutic Lovenox for PE/DVT Code: Full Dispo: Pt has been stable with left sided deficits, pending rehab screen as workup can be continued out of the hospital setting. Addendum - Attending - Attending Attestation Date/Time: 01/12/19 2769 I personally evaluated the patient and discussed the management with Dr. Iglesias. I agree with the History, Examination, Assessment and Plan documented above with any addition or exceptions noted below. At my rounds this morning I note she appears ill. She is somnolent but arousable and desires we stop the gabapentin. I note her belly is distended and with diminished bowel sounds. Dr Iglesias notes her somnolence is worsening and her abdominal distention is worsening. While the myelitis may explain her mental status we will seek to stop sedation due to meds, and re-eval her abdomen. We appreciate neuro/NS input.
[2019-01-12] MEDS: HumaLOG 300 UNITS/3 ML VIAL SC PRN ×3 (06:08→21:49)
--- NOTE | 2019-01-12 08:46 | PRG ---
DATE OF SERVICE: 01/12/2019 I saw Charis Rodrigez in her hospital room this morning. She feels her arm is improving since steroids are started. She was diagnosed with a pulmonary embolus and right lower extremity DVT at the end of last week. The cytology has been negative for cancer cells. Neurology feels the lesion is most chemical sales representative of inflammatory/autoimmune disease, perhaps transverse myelitis. Ms. Rodrigez's neurological examination is stable from last week. Perhaps the intrinsic hand strength is slightly improved in the left hand. She continues to have upper motor neuron weakness on the left side of the body. CSF testing for oligoclonal bands and IgG injection are still pending. Neurology believes this is transverse myelitis and I think a course of steroids and immunomodulatory medication are in order. I am recommending short followup imaging, perhaps 3 weeks after the first set of images with and without contrast of the cervical spine. Hopefully, it will be stabilized or making progress by then. If imaging looks the same in spite of therapy and will discuss how to proceed thereafter. I would like her to transition to inpatient rehabilitation and visit me in the office for her followup scan. Job ID: [id number] MTDD
[2019-01-12] MEDS: Polyethylene Glycol 3350 17 GM Packet PO SCH ×3 (09:03→21:50)
[2019-01-12] MEDS: carBAMazepine 100 mg Chewable Tablet PO SCH (09:05)
[2019-01-12] MEDS: Losartan 25 MG TAB PO SCH (09:06)
[2019-01-12] MEDS: predniSONE 50 MG TAB PO SCH (09:08)
[2019-01-12] MEDS: Rosuvastatin 5 MG TAB PO SCH (09:09)
[2019-01-12] MEDS: Senokot 8.6 MG TAB PO SCH ×2 (09:09→21:50)
[2019-01-12] MEDS: metFORMIN XR 500 MG TAB PO SCH ×2 (09:10→21:49)
[2019-01-12] MEDS: Enoxaparin Sodium 60 MG/0.6 ML SYRINGE SC SCH ×2 (09:17→21:48)
[2019-01-12] MEDS ORDERED: Iopamidol 370 76% 100 ML VIAL ONE (10:34)
[2019-01-12] MEDS ORDERED: GASTROGRAFIN 30 ML BOT ONE (10:34)
--- NOTE | 2019-01-12 10:50 | PQF ---
SIERRA SAMUEL Spencer *r [id number] [facility] [place]-218 [id number] CLINICAL DOCUMENTATION IMPROVEMENT CLARIFICATION FORM: ICD-10 Updated PLEASE DO AN ADDENDUM TO THE PROGRESS NOTE WITH ANY DOCUMENTATION UPDATES OR ADDITIONS AND CARRY THROUGH TO DC SUMMARY. THANK YOU. DATE: 01/12/2019 ATTN:DR. Kristen COON Please exercise your independent, professional judgment in responding to the clarification form. 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 RACHELL (This form is maintained as a part of the permanent medical record) 2015 [employer] All Rights Reserved MARIKA [email or web address] [phone] MTDD
[2019-01-12] MEDS ORDERED: Fleet Enema 133 ML BOT PR SCH (11:30)
[2019-01-12] MEDS: Gabapentin 100 MG CAP PO SCH (11:41)
[2019-01-12 12:55] LABS: Anion Gap 14 mmol/L (10-20); BUN (Urea Nitrogen) 92 mg/dL (9.8-20.1); Calc. Creatinine Clearance 41 mL/min (70-130); Calcium 10.8 mg/dL (7.8-10.44); Carbon Dioxide 26 mmol/L (23-31); Chloride 96 mmol/L (98-107); Estimated GFR-MDRD 37; Glucose 206 mg/dL (80-115); Potassium 4.8 mmol/L (3.5-5.1); Sodium 131 mmol/L (136-145)
[2019-01-12 13:05] LABS: Band 2 % (5-11); Hemoglobin 14.9 g/dL (12.0-16.0); Lymphocytes 16 % (21-51); MDiff Complete? YES; Mean Corpuscular HGB CONC 33.2 g/dL (32.0-36.0); Mean Corpuscular Hemoglobin 31.2 pg (27.0-31.0); Mean Corpuscular Volume 94.2 fL (78.0-98.0); Monocytes 4 % (0-10); Neutrophil 77 % (42-75); Platelet Count 243 thou/uL (130-400); RBC Distribution Width 11.7 % (11.5-14.5); RBC Morphology Normal; Reactive Lymphocytes 1 % (0-10); Red Blood Cell (RBC) Count 4.76 mill/uL (4.20-5.40); White Blood Cell (WBC) Count 15.2 thou/uL (4.8-10.8)
[2019-01-12] MEDS ORDERED: Lactated Ringer's 1,000 ML IV SCH (13:15)
[2019-01-12] MEDS: Ondansetron PF 4 MG/2 ML Vial IVP PRN (13:28)
[2019-01-12 15:12] LABS: Factor VIII Test 491.9 % ACTIVE (56-157)
--- NOTE | 2019-01-12 15:17 | RAD ---
CHEST 1 VIEW: Date: 01/12/19 HISTORY: Dyspnea. FINDINGS: Atherosclerosis of aortic knob. Normal cardiac silhouette. Pulmonary vessels and hilum are normal. Bl unting of the left costophrenic angle with increased opacity in the left lung base, likely representi ng atelectasis. Pneumonia or aspiration cannot be excluded. No pneumothorax or osseous abnormalities. IMPRESSION: Left-sided pleural effusion with adjacent parenchymal changes as described above. POS: OFF
--- NOTE | 2019-01-12 15:24 | PDOC.EVN ---
Event Note - Event Note Event Note: Nurse notified team of pt oxygen saturation decompensating to 85% requiring 4 L Oxygen from room air. She was noted to have an episode of hypertension, she remained tachycardic. This episode happened while drinking contrast for CT Scan abdomen/pelvis for constipation. EKG revealed sinus tachycardia, Lead III T wave inversions, no ST segment changes. Trop negative x 1. CXR revealed large gastric bubble, L sided atalectisis vs pneumonia vs aspiration. CT scan revealed likely ileus, bowel obstruction cannot be ruled out. At this time will place gupta catheter and NG Tube. Will move to the IMCU at this time. Negative respiratory pressure, FVC will be evaluated. Tony Iglesias DO
[2019-01-12 15:44] LABS: Troponin I Less than 0.010 ng/mL (< 0.028)
[2019-01-12 16:16] LABS: DRVVT Ratio 0.9 Ratio (1.2 or Less)
--- NOTE | 2019-01-12 16:26 | CT ---
CT of the abdomen and pelvis: 01/12/2019 COMPARISON: 01/08/2019 HISTORY: Constipation, distended abdomen TECHNIQUE: Axial CT imaging at 5 mm intervals from lung bases through pubic symphysis with IV contras t. Coronal reformatted imaging obtained. FINDINGS: Mild increased linear density noted in both lung bases. No free intraperitoneal air is note d. Foci of subcutaneous gas noted anteriorly, suggesting subcutaneous injections. There is mild distention of the gallbladder, a stable finding. There is a tiny hypodense lesion within the central aspect of the liver measuring 8-9 mm on axial max ge 13, stable. The spleen, pancreas, and right adrenal gland appear unremarkable. There is a nonspecific adrenal nod ule on the left measuring 1.5 cm. There is mild left-sided hydronephrosis and hydroureter. There is also mild hydronephrosis on the rig ht involving a pelvic kidney. This is likely associated with the markedly distended urinary bladder, which measures 14.3 x 14.8 x 12.1 cm. The imaged upper extremities demonstrate edema within the musculature and subcutaneous fat on the lef t, which could be seen on the basis of DVT. Cellulitis is a possibility as well. There is moderate distention of the colon, which includes the cecum which measures 9 cm in transverse dimension. There is mild gaseous distention of small bowel within the lower abdomen. No convincing evidence for small bowel obstruction. There is significant stool within the ascending colon. There is extensive atherosclerotic calcification of the abdominal aorta and its branches. No lymphade nopathy is evident within the abdomen/pelvis. Review of the osseous structures demonstrates no worrisome lytic or blastic bone lesions. IMPRESSION: Markedly distended urinary bladder with mild bilateral hydronephrosis. Moderately distended colon and mild distention of distal small bowel with no convincing evidence for small bowel obstruction. This may represent ileus. Recommend continued follow-up imaging to document resolution. A degree of developing obstruction cannot be fully excluded. Edematous change within the imaged left thigh as detailed above. Nonspecific mass within the left adrenal gland.
[2019-01-12] MEDS: Lactated Ringer's 1,000 ML IV SCH ×2 (16:46→18:28)
--- NOTE | 2019-01-12 18:24 | RAD ---
Abdomen one view INDICATION: NG tube placement COMPARISON: CT the abdomen and pelvis dated January 12, 2019 FINDINGS: Bowel gas: Stable nonspecific moderate gaseous distention of small and large bowel loops within the a bdomen. Gastric catheter projects in the region of the gastric fundus. Lung bases: Not fully seen Additional findings: No suspicious calcification demonstrated. Osseous structures: No acute osseous abnormality is demonstrated. IMPRESSION: 1. Stable moderate gaseous distention of loops of small and large bowel may reflect underlying ileus. 2. Gastric catheter projecting in the region of the gastric fundus.
[2019-01-12 18:42] LABS: Lactic Acid 1.7 mmol/L (0.5-2.2)
[2019-01-12 18:48] LABS: Bilirubin Moderate (Negative); Blood, Urine Large (Negative); Glucose, Urine (Dipstick) Negative (Negative); Leukocyte Negative (Negative); Nitrite Negative (Negative); Protein, Urine (Dipstick) > or equal to 300 mg/dL (Neg-Trace); Urobilinogen 0.2 mg/dL (Less than 2)
[2019-01-12 18:57] LABS: Clarity Clear (Clear)
[2019-01-12 18:58] LABS: Bacteria/HPF 1+ HPF (None Seen); RBC/HPF Greater than 50 HPF (0-3); Squamous Epithelial 0-3 HPF (0-3); Urine Culture Reflex No No; WBC/HPF 0-3 HPF (0-3)
[2019-01-13] MEDS: Lactated Ringer's 1,000 ML IV SCH ×3 (01:49→20:02)
--- NOTE | 2019-01-13 05:56 | PDOC.FM ---
- Subjective Subjective: Pt was somnolent through exam. She endorsed pain at Left ear. Yesterday she stated it felt like fluid was in her ear. - Objective Vital Signs & Weight: Vital Signs (12 hours) Temp Pulse Ox 01/13/19 03:38 98.1 F 01/13/19 00:00 99 01/12/19 23:18 97.8 F 01/12/19 20:30 100 01/12/19 19:51 97.6 F Weight Weight 63.276 kg Most Recent Monitor Data Heart Rate from ECG 116 NIBP 142/80 NIBP BP-Mean 100 Respiration from ECG 17 SpO2 99 I&O: 01/11/19 01/12/19 01/13/19 06:59 06:59 06:59 Intake Total 900 1860 600 Output Total 0 1635 Balance 900 1860 -1035 Result Diagrams: 01/13/19 07:07 01/13/19 07:07 Phys Exam - Physical Examination Constitutional: NAD 1 L with O2 sats 97% HEENT: PERRLA, moist MMs Respiratory: no wheezing, no rhonchi Rales on R posterior side Cardiovascular: RRR, no significant murmur Gastrointestinal: soft, no distention, positive bowel sounds Musculoskeletal: pulses present non-pitting edema on L side Psychiatric: A&O x 3 Dx/Plan (1) Weakness Code(s): R53.1 - WEAKNESS Status: Acute (2) Radiculopathy Code(s): M54.10 - RADICULOPATHY, SITE UNSPECIFIED Status: Acute (3) Cervical stenosis of spine Code(s): M48.02 - SPINAL STENOSIS, CERVICAL REGION Status: Acute (4) Herniated disc, cervical Code(s): M50.20 - OTHER CERVICAL DISC DISPLACEMENT, UNSP CERVICAL REGION Status: Acute (5) Diabetes mellitus Code(s): E11.9 - TYPE 2 DIABETES MELLITUS WITHOUT COMPLICATIONS Status: Acute (6) Urinary retention Code(s): R33.9 - RETENTION OF URINE, UNSPECIFIED Status: Acute (7) Constipation Code(s): K59.00 - CONSTIPATION, UNSPECIFIED Status: Acute - Plan Plan: # Progressive Weakness, multiple weeks since onset secondary to lesion noted on MRI at Cervicomedullary Junction # Cervical Demyelination # Herniated Cervical Disc Pt was scheduled to see [facility], Neurosurgery, 01/05 concerning new onset symptoms but came to hospital bc she felt uncomfortable with progressive weakness. Symptoms have been present x 2 weeks prompting PCP to order cervical MRI. Pt also was seen in out of town ED concerning symptoms where CT Head, CTA Carotids were performed. TSH WNL. Neurosurg, neurology were consulted on pt, appreciate rec's. Recommended Steroid was initiated 01/07/19 and will start prednisone 60 mg taper 01/08/19 with [address] Espinal. Lumbar and thoracic MRI did not reveal significant pathology. Cervical lesion confirmed lesion at cervicomedullary junction. CT Chest/Abdomen/Pelvis negative for malignancy work up, less likely secondary carcinoma brain lesion. Other considerations are autoimmune, AVM, fistula, and hemangioblastoma, transverse myelitis, infection, primary neoplasm. Large volume LP, 01/07/19 with cytology, electrophoresis pending; HTLV1, Anti-mog, Anti-NMO pending. Lupus work up negative. If all workup is negative neurology discussed consideration of biopsy, resection in this location would be difficult. Consequently on 01/08 CT, PE found and Lovenox 1mg/kg started. Pt did not overtly complain of classic symptoms but did state she remembers becoming SOB with onset of weakness, HR has been tachy. PT recommends physical therapy at this time. Pending rehab screen, can follow up pt's care/labs in the rehab setting. 01/11 pt became tearful due to disposition, inability to ambulate, and remaining bedridden. She has good support and until now has remained positive. On 01/12 pt was somnolent compared to previous exam, all sedating medications were d/c. In the afternoon pt had acute hypoxic episode, sats in 80's, prompting oxygen 4 L. EKG revealed sinus tach with T wave inversion in lead III , CXR revealed hypoinflated lungs, trop neg. CT abdomen/pelvis revealed heavy stool burden, ileus and could not rule out obstruction; enlarged bladder. NG tube and gupta placed. Pt was transferred to [facility] for acute decompensation and to monitor oxygen saturations, NIP ordered to assess neurologic involvement of respiratory muscles. 01/13 pt remains somnolent, falling asleep during interview. Strength testing is unchanged. Pt noted to have a BM yesterday, roughly 3 L urine output with gupta. BUN/Creatinine improving after alleviating post-obstruction. Likely symptoms are secondary to dysautonomia. Discussed pt's acute decline with Dr. Espinal who recommended repeat MRI brain, cervical to assess if lesion has changed; we also discussed transferring patient to [facility]. At this time we will keep pt in the IMCU and monitor respiratory status as lesion is in the region of phrenic nerve. Initial negative inspiratory pressure 35, pending follow up today. Results/Orders: MRI Cervical revealed stable abnormal signal intensity in the visualized brainstem, cervicomedullary junction, and cervical cord; primary neoplastic is favored, other considerations are cord infarct but less favorable. MRI Thoracic revealed no significant abnormalities MRI Lumbar annjular fissures with disc bulges at L5-L5 and L5-S1; ectopic kidney MRI brain 01/05/19 w/ and w/o revealed abnormal signal intensity involving the middle and cervical medullary junction. Findings are presumed to be due to a primary neoplastic process. Demyelinating process or card infarct are less favored considerations. MRI neck (outside facility): demyelinating lesion C1-C5/6, spinal stenosis, herniated disk CT head (outside facility): chronic white matter lesions, 2mm incidental vertebral aneurysm CTA carotids: neg CT Head noncontrast 01/05 - unremarkable for acute pathology CT Contrast Chest/Abdomen/Pelvis revealed no malignancy but did show significant R sided PE. B12, Folate, TSH WNL; RPR non-reactive Neurosurg consult, appreciate recs; Neurology sonsult, appreciate recs Consider ID if workup is negative - Prednisone 60 mg daily 10 day taper; Pt is on 40 mg dose; pt has decompensated at this time. Unsure if taper is related to decompensation. - Pending CSF electrophoresis; pending HTLV1, Anti-mog, Anti- NMO - Repeat MRI # Pulmonary Embolism # DVT Right Posterior Tibial Vein R sided pulm involvement w/ possible L sided involvement noted on 01/08 CT scan. 01/10/19 she began requiring 1 L Oxygen NC. U/S 01/10 revealed RLE thrombus. - started therapeutic lovenox 01/08/19. Discussed with NS who agreed, just asked no anticoags be taken by mouth. If surg is needed Lovenox will need to be d/c 24 hours beforehand. - Left leg seems mildly larger than Right. She denies pain. Possibly secondary to limited motion; cont PT/OT # Constipation - noted 1 BM 01/12, abdomen less distended, NG placed - Pt remained w/o BM on 01/12, CT scan revealed ileus and could not rule out obstruction, NG tube placed. Will continue medications noted below. Complication is likely due to neuropathic lesion. - Continue miralax bid, senna bid, suds enema prn on 01/13. Digital dis- impaction 01/11 with little stool burden relief. Hydration could possibly help with burden. Monitor. # Post-obstructive Renal Dysfunction - improving - Gupta catheter placed with ~1.6 L removed, monitor kidney function # Elevated Blood Pressures Cont home BP med. Resolved on 01/13, possible secondary to post-obstructive renal dysfunction. 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 Weak but normal passive ROM. - Ankle xray revealed no acute process, posterior calcaneal spur # DM II Denies HLD, HTN even though on therapy, possibly on medication for prevention but pt was unsure - losartan, statin therapy - Restarted metformin at 500 mg PO BID - consider increase to home dose, SSI started # Ectopic Kidney Visualized on Lumbar MRI Diet: Heart Healthy Diet Fluids: PO - monitor as pt has decreased PO intake DVT Prophalaxis: Therapeutic Lovenox for PE/DVT Code: Full Dispo: Pt has been stable with left sided deficits, pending rehab screen as workup can be continued out of the hospital setting. Addendum - Attending - Attending Attestation Date/Time: 01/13/19 1200 I personally evaluated the patient and discussed the management with Dr. Iglesias. I agree with the History, Examination, Assessment and Plan documented above with any addition or exceptions noted below. No lesion on left ear on exam. Will order ABG to eval for hypercapnia as cause for somnolence. Will also check ammonia level.
[2019-01-13 06:35] VITALS: BMI 22.6
[2019-01-13 07:45] LABS: #Lymphocytes 0.8 thou/uL (1.20-3.40); #Neutrophils 5.2 thou/uL (1.40-6.50); %Basophils 0.1 % (0.0-1.0); %Eosinophils 0.7 % (0.0-10.0); %Lymphocytes 10.9 % (21.0-51.0); %Monocytes 14.4 % (0.0-10.0); %Neutrophils 73.9 % (42.0-75.0); Hemoglobin 12.4 g/dL (12.0-16.0); Mean Corpuscular HGB CONC 33.3 g/dL (32.0-36.0); Mean Corpuscular Hemoglobin 31.4 pg (27.0-31.0); Mean Corpuscular Volume 94.3 fL (78.0-98.0); Mean Platelet Volume 8.1 fL (7.4-10.4); Platelet Count 231 thou/uL (130-400); RBC Distribution Width 11.5 % (11.5-14.5); Red Blood Cell (RBC) Count 3.96 mill/uL (4.20-5.40)
--- NOTE | 2019-01-13 07:51 | PRG ---
DATE OF SERVICE: 01/13/2019 I visited Charis Rodrigez in our intermediate care unit this morning. She has moved yesterday after an episode of hypoxia. Since transfer, her oxygen saturations have been quite good. This morning, she looks a bit tired. She is using accessory muscles for respiration. Vitals look stable. Her upper motor neuron weakness on the left side is stable and significant. She has a bit of ptosis of the left eye. Imaging yesterday suggested distended urinary bladder. Bowel obstruction or ileus is possible. There is a tiny mass in the adrenal gland, which is nonspecific. Full report from CSF cytology does not suggest lymphoma. No comments were made on the other malignancies, oligoclonal bands have not returned. Ms. Rodrigez had a bit worse yesterday. This is in spite of recommended treatment by her neurologist. I will contact Neurology today and if no more ideas on management are offered, we may transfer to a neurology teaching center. Neurosurgical considerations include ACDF or posterior decompression at C5-C6 and open biopsy of the cervical medullary lesion, where there is enhancement. I do not believe we have exhausted all other measures yet. Job ID: [id number]
[2019-01-13 08:16] LABS: Anion Gap 14 mmol/L (10-20); BUN (Urea Nitrogen) 57 mg/dL (9.8-20.1); Calc. Creatinine Clearance 84 mL/min (70-130); Calcium 9.4 mg/dL (7.8-10.44); Carbon Dioxide 25 mmol/L (23-31); Chloride 102 mmol/L (98-107); Estimated GFR-MDRD 85; Glucose 164 mg/dL (80-115); Potassium 4.3 mmol/L (3.5-5.1); Sodium 137 mmol/L (136-145)
[2019-01-13] MEDS ORDERED: predniSONE 20 MG TAB PO SCH (09:00)
[2019-01-13] MEDS ORDERED: Ketorolac Tromethamine 30 MG/ML VIAL IVP PRN (09:08)
[2019-01-13 09:31] LABS: HEX PHOS LA Tube 1 52.4 SEC; HEX PHOS LA Tube 2 45.1 SEC; Hexagonal Phospholipid Neut 7.3 SEC (0-8.0)
[2019-01-13] MEDS: Enoxaparin Sodium 60 MG/0.6 ML SYRINGE SC SCH ×2 (09:39→20:00)
[2019-01-13] MEDS: Senokot 8.6 MG TAB PO SCH ×2 (09:39→20:01)
[2019-01-13] MEDS: Polyethylene Glycol 3350 17 GM Packet PO SCH ×3 (09:40→20:01)
[2019-01-13] MEDS: metFORMIN XR 500 MG TAB PO SCH ×2 (09:40→20:00)
[2019-01-13] MEDS: Losartan 25 MG TAB PO SCH (09:40)
[2019-01-13] MEDS: Rosuvastatin 5 MG TAB PO SCH (09:42)
--- NOTE | 2019-01-13 09:45 | PQF ---
SIERRA SAMUEL SPENCER DO *r [id number] [facility]- B07 [id number] CLINICAL DOCUMENTATION IMPROVEMENT CLARIFICATION FORM: ICD-10 Updated PLEASE DO AN ADDENDUM TO THE PROGRESS NOTE WITH ANY DOCUMENTATION UPDATES OR ADDITIONS AND CARRY THROUGH TO DC SUMMARY. THANK YOU. DATE: 01/13/19 ATTN:DR. Reji COON Please exercise your independent, professional judgment in responding to the clarification form. Clinical indicators are provided on the bottom of this form for your review. Please check appropriate box(s): [ ] Acute Respiratory Failure: [ ] with Hypoxia[ ] with Hypercapnia [ x ] Hypoxia [ ] Other diagnosis [ ] Unable to determine In addition, please specify: Present on Admission (POA): [ ] Yes [ x ] No [ ] Unable to determine For continuity of documentation, please document condition throughout progress notes and discharge summary. Thank You. CLINICAL INDICATORS - SIGNS / SYMPTOMS / LABS 01/12 EVENT NOTE: (JAYMIE) NURSE NOTIFIED TEAM OF PT OXYGEN SATURATION DECOMPENSATING TO 85% REQUIRING 4L/NC OXYGEN FROM ROOM AIR. SHE WAS NOTED TO HAVE AN EPISODE OF HYPERTENSION AND SHE REMAINED TACHYCARDIA. 01/12 CXR IMPRESSION: LEFT SIDED PLEURAL EFFUSION W ADJACENT PARENCHYMAL CHANGES. 01/13 PN (KEN) SHE HAS MOVED AFTER AN EPISODE OF HYPOXIA. THIS MORNING SHE IS USING HER ACCESSORY MUSCLES FOR RESPIRATION. RISK: LEFT SIDE ATELECTASIS VS PNEUMONIA VS ASPIRATION (JAYMIE) HX OF TOBACCO ABUSE, CVA TREATMENTS: TRANSFER TO [facility] SUPPLEMENTAL OXYGEN THANK YOU! RACHELL (This form is maintained as a part of the permanent medical record) 2014 [employer]. All Rights Reserved MARIKA [email or web address]! [phone] MTDD
[2019-01-13 12:15] VITALS: BP 162/86
[2019-01-13 12:18] LABS: Base Excess (BEa) 5.3 mEq/L (-2.0 to +3.0); CO2 Tension 44.4 mmHg (35.0-45.0); Calcium, Ionized 1.22 mmol/L (1.12-1.30); Carboxyhemoglobin (COHb) 1.4 gm% (0.0-3.0); Hemoglobin (Hb) 12.9 g/dL (12.0-16.0); O2 Tension (PaO2) 75.2 mmHg (> 80.0); Puncture Site LB; pH, Arterial 7.45 (7.35-7.45)
--- NOTE | 2019-01-13 12:22 | CON ---
DATE OF CONSULTATION: 01/13/2019 CONSULTING PHYSICIAN: [facility] [place] Mandatory Consult for stay. HISTORY OF PRESENT ILLNESS: This is a 63-year-old female, who was initially admitted to this facility on 01/05/2019. The presenting complaint was left-sided weakness, that had been progressive over 2 days. She had MRI performed, which showed C1 through C5 demyelination. Apparently, differential is a transverse myelitis type process, but also, vasculitis has been considered. Yesterday, she developed hypoxemia, where she was transferred to this unit. She was initially on 4 L, but now that is better. Respiratory therapist tells me that her had fallen from -45 to -25, and they were unable to do vital capacity checks because the portable spirometer cannot be found. PAST MEDICAL HISTORY: Diabetes mellitus and cervical stenosis. PAST SURGICAL HISTORY: None. FAMILY MEDICAL HISTORY: Unremarkable. SOCIAL HISTORY: Stopped smoking about 1 month ago after smoking less than a pack per day for 20 years. Does not consume alcohol. Does not use illicit drugs. REVIEW OF SYSTEMS: Positive for shortness of breath. Positive for left-sided weakness. Otherwise, negative. MEDICATIONS: These were reviewed and listed in the summary section on the chart. Currently, she is usin. Cozaar. 2. Skelaxin. 3. Glucophage. 4. Ondansetron. 5. Crestor. PHYSICAL EXAMINATION: VITAL SIGNS: Temperature 97.8, pulse 115, blood pressure 156/85, O2 saturation 100%. 24-hour intake 1860. HEENT: She has a very slight left-sided facial droop. Tongue protrudes midline. MUSCULOSKELETAL: Trapezius muscle function seems normal. Left arm curriculum designer is 4/5, right arm 5/5, left foot strength 3+/5, right foot 5/5. SKIN: No rashes, bruising, or jaundice present. She has some edema in lower extremities on the left. NECK: No adenopathy or JVD. LUNGS: Fairly clear. CARDIAC: S1 and S2. Regular without murmur. ABDOMEN: Soft and nontender. EXTREMITIES: No other lesions noted. LABORATORY DATA: Sodium 137, potassium 4.3, chloride 102, CO2 of 25, BUN 57, creatinine 0.7, glucose 164. White blood cell count 7, hematocrit 37.3, platelet count 231. A chest x-ray demonstrates no mass, effusion, or infiltrate. She did have a DVT noted on ultrasound and had a pulmonary embolism noted. ASSESSMENT: 1. Pulmonary embolism. 2. Deep venous thrombosis. 3. Transverse myelitis versus vasculitis versus cord infarction versus stroke. RECOMMENDATIONS: 1. Check C-reactive protein and sedimentation rate. 2. If possible, we would obtain portable spirometry and do differential vital capacity checks to assess strength of diaphragm. PFTs will need to be done in both sitting and supine positions. 3. I would definitely consider transferring her to a center where Neurology care is present on-site continually. This will likely need to be at [facility]. We will follow. Job ID: [id number]
[2019-01-13] MEDS ORDERED: Ondansetron ODT 8 MG TAB SL PRN (16:09)
[2019-01-13] MEDS ORDERED: Ondansetron PF 4 MG/2 ML Vial IVP PRN (16:16)
[2019-01-13] MEDS: HumaLOG 300 UNITS/3 ML VIAL SC PRN (17:32)
--- NOTE | 2019-01-13 17:38 | MRI ---
BRAIN MRI WITH AND WITHOUT CONTRAST: 01/13/19 COMPARISON: 01/05/19 HISTORY: Evaluate for progression of brain lesion. TECHNIQUE: Multiplanar and multisequence MR imaging of the brain is obtained with and without contrast. FINDINGS: This examination is quite limited secondary to persistent motion artifact. The gradient echo imaging is grossly unremarkable, limited on the basis of motion artifact. The diffusion weighted imaging demonstrates a focus of restricted diffusion within the medulla and up per cervical cord at the axial level of the skull base, unchanged when compared to the prior exam. Imaged paranasal sinuses and mastoid air cells appear well aerated. There is increased T2 and FLAIR s ignal within the medulla and upper cervical cord, similar when compared to the prior examination. Com parison is limited; however, secondary to motion artifact. Postcontrast imaging demonstrates vague enhancement associated with the lower medulla and upper cervi magnus cord peripherally, improved when compared to the prior examination but comparison is quite limite d secondary to motion. IMPRESSION: Interval improvement of T2 hyperintensity and enhancement of the nonspecific enhancing lesion at the cervicomedullary junction. POS: MERYL
--- NOTE | 2019-01-13 17:53 | MRI ---
CERVICAL SPINE MRI WITH AND WITHOUT CONTRAST: 01/13/19 COMPARISON: 01/06/19 HISTORY: Re-evaluate lesion at the cervicomedullary junction. TECHNIQUE: Multiplanar and multisequence MR imaging of the cervical spine obtained with and without contrast. FINDINGS: There is a focal area of abnormal increased T2 signal within the central aspect of the medulla which measures approximately 7 mm in craniocaudal dimension. There is adjacent increased T2 signal within t he medulla to the right of midline. The degree of abnormal T2 signal seen focally in this region is m arkedly improved when compared to the prior exam. In addition, the prior examination demonstrated ext ensive abnormal increased T2 signal within the cervical cord from the craniocervical junction through the cervicothoracic junction which is markedly improved on this examination with only minimal intram edullary increased T2 signal within the upper cervical cord at the C2 level on today's examination. The sagittal STIR imaging demonstrates no focal area of osseous marrow edema. There is disc space jenifer rowing with degenerative end plate changes as well as anterior and posterior osteophyte formation and disc bulge at C506 and C6-7. The degenerative changes present within the cervical spine are unchange d when compared to the 01/06/19 examination. The postcontrast imaging continues to demonstrate abnormal increased signal intensity within the medu lla and upper cervical cord. However, this enhancement has improved significantly when compared to th e prior study performed seven days prior. No new areas of abnormal enhancement are identified within the cervical cord. IMPRESSION: Nonspecific T2 hyperintense enhancing lesion within the medulla and upper cervical cord. The mass eff ect at the cervicomedullary junction, the increased T2 signal, and the enhancement has significantly improved when compared to the prior examination and the associated edema throughout the cervical cord seen on the prior examination has essentially resolved. Etiology of this abnormality is uncertain. T his could represent a primary neoplasm which has improved secondary to recent steroid administration. A demyelinating process or transverse myelitis is a possibility. Continued short term follow-up advi sed. POS: SJCherry
[2019-01-13 19:36] VITALS: TEMP 97.8
--- NOTE | 2019-01-14 09:48 | DIS ---
DATE OF ADMISSION: 01/05/2019 DATE OF DISCHARGE: 01/13/2019 RESIDENT: Tony Iglesias DO. ADMITTING ATTENDING: Fernando Crisostomo MD. CONSULTS: 1. Neurology, Dr. Josemanuel Espinal. 2. Neurosurgery, Dr. Falguni Recinos. 3. Pulmonology, Dr. Robert Jimenez. PROCEDURES: Lumbar puncture. PRIMARY DIAGNOSES: 1. Acute hypoxia with respiratory failure. 2. Likely transverse myelitis. 3. Ileus. 4. Bladder retention. 5. Pulmonary embolism. 6. Deep venous thrombosis, right lower extremity. 7. Tachycardia. 8. Somnolence. SECONDARY DIAGNOSES: 1. Hyperlipidemia. 2. Chronic pain. 3. Diabetes. 4. Hypertension. DISCHARGE MEDICATIONS: 1. Metformin XR 1000 mg p.o. b.i.d. 2. Losartan 25 mg p.o. daily. 3. Skelaxin 800 mg p.o. t.i.d. 4. Meclizine 25 mg p.o. p.r.n. 5. Crestor 5 mg p.o. daily. 6. Zofran 8 mg p.o. q.8 hours. 7. Tylenol with codeine No. 3 300 mg/30 mg 1-2 tablets p.o. q.6 p.r.n. 8. MiraLAX 17 mg p.o. t.i.d. 9. Senokot one tablet p.o. b.i.d. 10. Lovenox 60 mg subcu b.i.d. 11. Prednisone 30 mg p.o. b.i.d. x2 days. 12. Prednisone 30 mg p.o. daily x2 days. 13. Prednisone 20 mg p.o. q.a.m. daily x2 days. HISTORY OF PRESENT ILLNESS/HOSPITAL COURSE: Charis Rodrigez is a 63-year-old female with past medical history significant for diabetes type 2, cervical spinal stenosis, presented with worsening left-sided weakness in her arm and leg. The weakness began 2 weeks before the hospital presentation and progressively worsened to ED visit. On admission, she felt like she was unable to walk. She has seen her primary care physician for the symptoms before they progressed for which she ordered an MRI. The MRI revealed a cervical disk herniation and C1-C5 demyelination. She was scheduled for [facility] to evaluate her symptoms and MRI, but was unable to make the appointment the same day. She came into the ED due to the severity of her symptoms. She also had followed up at [facility] where she had a CTA revealing no stenosis of carotid artery arteries and CT head revealed no chronic white matter change and this revealed chronic white matter changes. On admission, we ordered a repeat MRI of the brain. This revealed abnormal signal intensity involving the medulla and cervicomedullary junction. Findings were presumed to be due to a primary neoplastic process. There is a demyelinating process and cord infarct were favored as less of a consideration at this time. We followed the CT of the cervical, thoracic and lumbar spine. The thoracic and lumbar spine MRI were nonrevealing. Cervical spine MRI revealed a stable abnormal signal intensity in the visualized brainstem, cervical medullary junction, and the cervical cord. There was an abnormal T2 hyperintensity seen in the C6, C7 and T1 vertebral levels. At this time, the primary neoplastic process was favored. Neurology and neurosurgery were consulted at this time. Neurosurgery felt this was less of a surgical process. I did order for an LP to be done with multiple lab tests to be performed. CSF glucose count was 86, CSF total protein was 128, fluid white blood cells was 35. Fluid color was colorless. Flow cytometry showed no evidence of lymphoproliferative disorder based on the antibody panel. The protein electrophoresis revealed total protein CSF 122.8, pre-albumin 1.7, low, albumin 68%, alpha 1 globulin 4%, alpha 2 globulin 6.1%, beta globulin 15%, gammaglobulin 5.2%, anti MOG, anti NMO, HTLV1 of CSF is still pending at this time. Other lab studies performed. Syphilis was nonreactive, VICKY screen negative, isxf-sjvywc-ceihatjc DNA negative, TSH within normal limits, B12 within normal limits. Folate within normal limits. With results of the CSF and the high levels of protein, primary diagnosisshifted towards transverse myelitis and it was thought less likely to be a neoplasm. At this time, neurology recommended starting the patient on Solu-Medrol 1 g per day for two days followed by steroid taper of 60 mg daily x2 days, 50 mg daily x2 days, 40 mg daily x2 days, 30 mg daily x2 days, 20 mg daily x2 days, in hopes that if this was an inflammatory process, the steroids would help with the inflammation. The patient initially responded really well to the steroids. Her strength in the left lower extremity improved mild modestly to 4/5 strength, but her left upper extremity showed much improvement to 4+/5 strength. When she initially came in, she was 4/5 in the lower extremity and 4/5 in the upper extremity. During her 1st week, the patient was scanned full body and thought that this was a neoplasm that she might have a primary source at another location of the body. There were no findings on CT scan of the chest, abdomen and pelvis, but did find an incidental pulmonary embolism involving majority of the right pulmonary vasculature. She did not have any symptoms other than tachycardia. Her oxygen saturation remained fine at the time of diagnosis. She was started on therapeutic Lovenox. At the beginning of the weekend, we were preparing the patient for discharge to a rehab facility, because we did not think any further workup was needed to be done at the hospital. She ended up staying at the hospital through the weekend and it was noted that she had not had had a bowel movement since the previous Saturday before she had come in. She was started on heavy bowel regimen and was never able to pass a bowel movement through the weekend. There is then on Saturday we noticed an acute decline in the patient's mentation. She also had a very distended stomach alerting us to get a CT of her abdomen checking for possible small bowel obstruction. Due to her mentation, she was also discontinued on all sedating medications at this time. On Saturday, as we were waiting for the CT scan, she had an episode of respiratory decompensation with her oxygen saturation at 85% and requiring 4 L of oxygen. At this time, we ordered an EKG, which was then within normal limits other than T-wave inversion in T3, troponins were within normal limits, so we proceeded with the CT scan, which revealed a distended bladder and an ileus. A Michaud catheter was placed at the time relieving her of 1.6 L. She was moved to the [facility] at this time due to her acute decompensation. Her mentation prior Saturday was good, she was alert and oriented x3, and she was able to conversate whenever a team foreman entered the room, but on Saturday, she made an acute decline and was very sedated. She would fall asleep in the middle of conversations. We checked an ABG on her and she did not have CO2 retention. Her pH was within normal limits. At this time, we repeated negative inspiratory pressure, which was 20, her NIP a couple of days prior was 35, so she was beginning to have respiratory decline as well. I think potentially that this lesion was causing dysautonomia causing the patient's potential tachycardia, bladder retention, constipation, she also experienced labile blood pressures. With her acute decline, we consulted with Dr. Espinal who recommended at this time, he thought to be best to transfer the patient to an outside facility. So at this time, we discussed this case with [facility] in [place], who accepted the patient. There was discussion of intubating the patient, but our team and our hand launderer thought that she would be able to protect airways, that she was at this time, not needing intubation and she was only on 1 L with 95-100 percent oxygen saturation. On the night of transfer, the patient was having difficulty talking as she was sedated and just seemed like she did not have the energy to form words. Her family was a great support for her during this time. They were with her in the room for most of the stay. The family understood the severity of the situation and it was discussed with them at length by myself. This is a very interesting case and an unfortunate acute decline for Ms. Rodrigez. She remained optimistic and brave throughout the whole process. I have to hear it from, Ms. Rodrigez a later day. Before transport to [facility] repeated an MRI of the brain and cervical spine, which revealed interval improvement of T2 hyperintensity and enhancement of the nonspecific enhancing lesion at the cervicomedullary junction and the associated edema throughout the cervical cord seen on the prior exam was essentially resolved. At this time, the etiology of this abnormality is uncertain. Appreciate, [facility] continuing care and accepting this patient. She is an interesting case and is . DISPOSITION: Unstable. DISCHARGE INSTRUCTIONS: 1. Location: [facility]. 2. Diet: N.p.o. 3. Activity: Work with physical therapy. 4. Followup: None. Job ID: [id number]
[2019-01-15] MEDS ORDERED: predniSONE 20 MG TAB PO SCH (09:00)
[2019-01-17] MEDS ORDERED: predniSONE 20 MG TAB PO SCH (09:00)
== END 2019-01-13 21:40 | disposition short-term general hospital (02) | DRG 551 ==
LOC: ERS 10:09 → 2SE 13:00 → OBSVTOIN 13:00 → IMCU/EMU 01-12 19:34
PROVIDERS: ADMIT Student in an Organized Health Care Education/Training Program; ATTEND Student in an Organized Health Care Education/Training Program
PROC: 009U3ZX Drainage of Spinal Canal, Percutaneous Approach, Diagnostic (ICD-10-PCS; principal; 2019-01-07)
PROC: B01B1ZZ Fluoroscopy of Spinal Cord using Low Osmolar Contrast (ICD-10-PCS; 2019-01-07)
DX: M50.20 Other cervical disc displacement, unspecified cervical region (principal); I26.99 Other pulmonary embolism without acute cor pulmonale; I82.431 Acute embolism and thrombosis of right popliteal vein; E87.1 Hypo-osmolality and hyponatremia; E11.9 Type 2 diabetes mellitus without complications; M48.02 Spinal stenosis, cervical region; M50.10 Cervical disc disorder with radiculopathy, unspecified cervical region; R09.02 Hypoxemia; K59.00 Constipation, unspecified; Z88.0 Allergy status to penicillin; Z79.84 Long term (current) use of oral hypoglycemic drugs; Z87.891 Personal history of nicotine dependence; Q63.2 Ectopic kidney
CPT/HCPCS: 36415; 36416; 62270; 70450; 70553; 71045; 71260; 72156; 72157; 72158; 74018; 74177; 80048; 80053; 80061; 81001; 82140; 82607; 82746; 82747; 82805; 82945; 83605; 84157; 84443; 84484; 85007; 85025; 85027; 85060; 85240; 85250; 85598; 85610; 85613; 85730; 86038; 86146; 86147; 86225; 86780; 87070; 87205; 88112; 88184; 89051; 93005; 93010; 93970; 94150; 94760; A9577; J1650; J1885; J2405; J2930; J3490; J7512; J8597; Q9963; Q9967